=== PATIENT | female | born 1965 | race Caucasian/White ===

== ENCOUNTER 2022-04-19 16:07 | Inpatient (IN) ==
--- NOTE | 2022-04-19 16:23 | ED Triage Note ---
Date of Service April 19, 2022 History of Present Illness This patient was briefly evaluated while in triage. An abbreviated physical exam was performed. This patient is a 56-year-old Female with past medical history of gallbladder sludge who presents to the ED for evaluation of epigastric and right upper quadrant pain radiating straight through to the back. The patient reports that the pain is worsened after eating. She denies any nausea, chest pain or shortness of breath. The pain is worsened when she takes a deep breath. The patient reports that she has had prior endoscopy studies, and her senior principal software engineer indicated that if she had another flare that she would likely require a cholecystostomy procedure. Her discomfort has been worsening over the past few days, but her current pain just started today after eating lunch Physical Exam CONSTITUTIONAL: Healthy and well nourished. Patient does not appear toxic HEENT: No scleral icterus or conjunctival injection RESPIRATORY: Clear to auscultation bilaterally with no wheezing, crackles, rhonchi or stridor. Deep breathing does cause mild discomfort CARDIOVASCULAR: Regular rate and rhythm with no murmurs, rubs or gallops. GASTROINTESTINAL: Bowel sounds present in all quadrants. Patient has epigastric and right upper quadrant tenderness to palpation with positive Leung sign. Negative CVA tenderness. No rigidity, guarding or rebound. MUSCULOSKELETAL: Full range of motion of all joints without discomfort. INTEGUMENTARY: No rash or other significant dermatologic conditions noted. HEMATOLOGIC: No ecchymosis or petechiae. PSYCHIATRIC: Positive affect. NEUROLOGIC: No focal neurologic deficits noted. Initial orders for labs and / or imaging were placed and patient was placed in the waiting area until a bed is available. Please see further documentation for the full ED course.
[2022-04-19 17:11] LABS: Basophils # (auto) 0.03 K/uL (0-0.2); Basophils % (auto) 0.6 %; Eosinophils # (auto) 0.12 K/uL (0-0.50); Eosinophils % (auto) 2.4 %; Hematocrit (blood only) 36.7 % (37.0-47.0); Hemoglobin 12.2 g/dl (12.0-16.0); Immature Granulocytes # (auto) 0.02 K/uL (0.01-0.20); Immature Granulocytes % (auto) 0.4 %; Lymphocytes % (auto) 25.5 %; Mean Corpuscular Hgb Conc 33.2 g/dL (32.0-36.0); Mean Corpuscular Volume 87.4 fL (80.0-100.0); Mean Platelet Volume 10.9 fL (9.4-12.4); Monocytes # (auto) 0.34 K/uL (0.11-0.59); Monocytes % (auto) 6.7 %; Neutrophils # (auto) 3.29 K/uL (1.40-6.50); Neutrophils % (auto) 64.4 %; Platelet Count 272 K/uL (130-400); RDW Standard Deviation 48.4 fL (36.4-46.3)
[2022-04-19 17:15] LABS: Pregnancy Test, Serum Negative (Negative)
[2022-04-19 17:17] LABS: Albumin Globulin Ratio 1.6 (0.9-2); Albumin Level 4.8 gm/dl (3.4-5.0); BUN Creatinine Ratio 15.8 (10-20); Bilirubin,Total 0.3 mg/dl (0.2-1.0); Calcium 10.9 mg/dl (8.5-10.1); Creatinine Clr Calc Pharmacy 59.6 ml/min; Est GFR (African American) 73.1 ml/min; Est GFR (Non-African American) 63.1 ml/min; Potassium 3.8 mmol/L (3.5-5.1); Total Protein 7.8 gm/dl (6.0-8.3)
--- NOTE | 2022-04-19 17:34 | Ultrasound Report ---
ULTRASOUND RIGHT UPPER QUADRANT ABDOMEN CLINICAL HISTORY: Epigastric and right upper quadrant abdominal pain. COMPARISON STUDY: No priors. TECHNIQUE: Real-time, grayscale, and color flow sonography of the right upper quadrant of the abdomen was performed. Images are reviewed in the transverse and longitudinal planes. FINDINGS: Liver: The liver is normal in size and echotexture. There is no intrahepatic biliary ductal dilatatio n. The main portal vein is patent. Gallbladder: The gallbladder is contracted and contains minimal sludge. No shadowing gallstones are i dentified. There is no gallbladder wall thickening or pericholecystic fluid. A sonographic Leung's s ign is reportedly absent. The common bile duct measures up to 0.2 cm in diameter. Pancreas: Visualized portions of the pancreatic head and body are normal in appearance. The splenic v ein is patent. Right kidney: Survey images of the right kidney demonstrate normal size and echotexture. There is no hydronephrosis. Ascites: None. IMPRESSION: No acute sonographic abnormality is seen in the right upper quadrant. No gallstones are i dentified. ACT 112: Negative or not required by law. Electronically signed by: James Diallo M.D. 04/19/2022 5:33 PM
--- NOTE | 2022-04-19 18:14 | Emergency Department Note ---
Impression & Plan Cecal volvulus, Abdominal pain ED Provider Note NAME: TIFFANIE PONCE AGE: 56 SEX: F : 1965 ARRIVES VIA: Walk-In INFORMANT: Patient, ED PROVIDER(S): Arias Mirza MD CHIEF COMPLAINT: Abdominal pain MEDICAL DECISION MAKING: Patient did present due to concern for abdominal pain. The patient did have blood work completed which showed a normal white count hemoglobin and platelet count with normal kidney function and electrolytes. LFTs unremarkable with normal lipase. Patient's urinalysis does show leuks and whites but the patient does not complain of dysuria or hematuria. COVID-negative. The patient initially did have a right upper quadrant ultrasound is unremarkable with the patient was diffusely tender to the patient did receive 4 of IV morphine and 4 of IV Zofran IV fluids and a CT of the abdomen pelvis was obtained. I did speak with radiology Dr. Gutierrez who did call me after reading the CAT scan and he was concerned about a possible cecal volvulus. Given this concern I did speak with the on-call general surgery service Dr. Akers who did review the patient's CAT scan I did evaluate the patient promptly. His recommendation was to take the patient to the operating room for surgery. Patient was agreeable with this plan of care. The patient was admitted to the surgery service by Dr. Akers. Prior /Outside records reviewed: None Differential diagnosis: Appendicitis, ovarian cyst, ovarian torsion, ectopic , TOA, PID, infections, diverticulitis, UTI, obstruction, mesenteric ischemia, aortic pathology, inflammatory bowel disease, renal colic, PUD, pancreatitis, biliary pathology, hernia, volvulus, constipation, as well as other pathologies. Diagnostics, as interpreted by me: ECG: None Cardiac monitoring: An order was placed for continuous cardiac monitoring. The monitor shows a rate of 82 with sinus rhythm. Patient was placed on pulse oximetry Medical decision rules: None Imaging studies: See below HPI: Patient presents with abdominal pain which she noted more in the epigastrium and periumbilical area but it is somewhat diffuse and began after lunchtime. The patient states that she had had symptoms before in the past and was noted to have a mild elevation in her lipase at 1 time and does get serial yearly MRIs to evaluate pancreatic cyst. The patient does drink alcohol socially but denies any tobacco or drug use. Patient's only surgical history is a completed 16 years prior. Patient has had nausea but no vomiting. The patient did not take anything for pain prior to arrival describes it as sharp and worse with palpation or movement. No recent falls or trauma. The patient did have recent bowel movement. Patient denies any dysuria or hematuria. PAST MEDICAL HISTORY: See Below PAST SURGICAL HISTORY: See Below SOCIAL HISTORY: See Below HOME MEDICATIONS: See Below ALLERGIES: See Below VITALS: See Below PHYSICAL EXAMINATION: GENERAL: NAD, wearing a mask, non-toxic. EYE EXAM: Normal conjunctiva. PERRL, no anisocoria and EOM's grossly intact w/o pain. NECK: Supple, no nuchal rigidity, no adenopathy, non-tender. No signs of meningismus. FROM of the neck with good chin to chest and neck extension. No stridor. LUNGS: Clear to auscultation. Normal chest wall mechanics. HEART: NSR, no MRG. ABDOMEN: Abdomen soft, moderate diffuse tenderness to palpation throughout the abdomen, normo-active bowel sounds, no masses, no rebound or guarding. BACK: No CVA TTP. SKIN: No rashes and no bruising. UPPER EXTREMITIES: Upper extremities are grossly normal. LOWER EXTREMITIES: Grossly normal, no edema. NEURO EXAM: A&O x3, cranial nerves II-XII grossly intact, normal speech, moves all 4 extremities. Past Med/Surg History Medical History (Updated 04/20/22 @ 13:55 by Arisa Mirza MD) Depression Surgical History History of section Social History Smoking Status: Never smoker Hx Alcohol Use: Yes Alcohol type: wine Hx Substance Use: No Preferred Language: [place] Communication Ability: Effective Clerical Investigator Required: No Beliefs That Will Affect Care: None Current Living Situation: Alone Other Information That Helps Us Care for You: No Feels Safe at Home: Yes Safety Concerns: Feels Safe At This Time Assistive Devices: None Allergies Allergies Allergy/AdvReac Type Severity Reaction Status Date / Time Penicillins Allergy Unknown HIVES Verified 04/19/22 19:22 erythromycin base AdvReac Unknown GI UPSET Verified 04/19/22 19:22 Home Meds Home Medications Medication Instructions Recorded Confirmed bupropion HCl 300 mg 24 hr tablet, 300 mg PO QAM 04/19/22 04/19/22 extended release glucosamine-chondroitin 250 mg-200 1 tab PO DAILY 04/19/22 04/19/22 mg tablet (Osteo Bi-Flex) multivitamin 1 tab PO DAILY 04/19/22 04/19/22 vortioxetine 10 mg tablet 10 mg PO DAILY 04/19/22 04/19/22 (Trintellix) zolpidem 5 mg tablet 5 mg PO HS PRN Sleep 04/19/22 04/19/22 Results & Data (ED) Vital Signs Vital Signs - 24 hr 04/19/22 16:12 04/19/22 19:02 04/19/22 21:00 Temperature 37.2 C Temperature Source Temporal Artery Scan Pulse Rate 86 Pulse Rate [Apical] 66 73 Respiratory Rate 18 16 19 Respiratory Effort / Characteristics Non-Labored Non-Labored Spontaneous Respiratory Depth Normal Blood Pressure 143/83 H Blood Pressure [Left Arm] 147/82 H 138/80 Blood Pressure Mean 103 Blood Pressure Mean [Left Arm] 103 99 Pulse Oximetry 100 100 99 Oxygen Delivery Method Room Air Room Air Room Air Sepsis Recent Fever Within 48 Hours No Sepsis New/Unexplained Change in Mental Status N/A Sepsis Action Taken by Nursing No Action Required Home Medications Current Medication List: was personally reviewed by me Laboratory Data Attestation: I reviewed the patient's lab results. 04/19/22 16:45 04/19/22 16:45 Lab Results 04/19/22 04/19/22 04/19/22 Range/Units 16:45 16:45 16:45 WBC 5.10 (4.8-10.8) K/ul RBC 4.20 (4.20-5.40) M/uL Hgb 12.2 (12.0-16.0) g/dl Hct 36.7 L (37.0-47.0) % MCV 87.4 (80.0-100.0) fL MCH 29.0 (25.0-34.0) pg MCHC 33.2 (32.0-36.0) g/dL RDW Std Deviation 48.4 H (36.4-46.3) fL RDW Coeff of Ronnie 15.0 H (11.5-14.5) % Plt Count 272 (130-400) K/uL MPV 10.9 (9.4-12.4) fL Immature Gran % (Auto) 0.4 % Neut % (Auto) 64.4 % Lymph % (Auto) 25.5 % Dickey % (Auto) 6.7 % Eos % (Auto) 2.4 % Baso % (Auto) 0.6 % Neut # (Auto) 3.29 (1.40-6.50) K/uL Lymph # (Auto) 1.30 (1.2-3.4) K/uL Dickey # (Auto) 0.34 (0.11-0.59) K/uL Eos # (Auto) 0.12 (0-0.50) K/uL Baso # (Auto) 0.03 (0-0.2) K/uL Immature Gran # (Auto) 0.02 (0.01-0.20) K/uL Sodium 140 (136-145) mmol/L Potassium 3.8 (3.5-5.1) mmol/L Chloride 103 (98-107) mmol/L Carbon Dioxide 30 (21-32) mmol/L Anion Gap 7 (3-11) BUN 16 (6-23) mg/dl Creatinine 1.01 (0.6-1.2) mg/dl Est Cr Clr Drug Dosing 59.6 ml/min Est GFR ( Amer) 73.1 ml/min Est GFR (Non-Af Amer) 63.1 ml/min BUN/Creatinine Ratio 15.8 (10-20) Glucose 86 (70-99(Fasting)) mg/dl Calcium 10.9 H (8.5-10.1) mg/dl Total Bilirubin 0.3 (0.2-1.0) mg/dl AST 22 (13-39) U/L ALT 16 (7-52) U/L Alkaline Phosphatase 62 (34-104) U/L Total Protein 7.8 (6.0-8.3) gm/dl Albumin 4.8 (3.4-5.0) gm/dl Globulin 3.0 (2.5-4.0) gm/dl Albumin/Globulin Ratio 1.6 (0.9-2) Lipase 47 (11-82) U/L HCG, Qual Negative (Negative) Urine Color Urine Appearance (Clear) Urine pH (4.5-7.5) Ur Specific [place] (1.000-1.030) Urine Protein (Negative) Urine Glucose (UA) (Negative) Urine Ketones (Negative) Urine Blood (Negative) Urine Nitrite (Negative) Urine Bilirubin (Negative) Urine Urobilinogen (Negative) Ur Leukocyte Esterase (Negative) Urine WBC (Auto) (0-5) /hpf Urine RBC (Auto) (0-4) /hpf U Hyaline Cast (Auto) (0-5) /lpf U Epithel Cells (Auto) (0-5) /lpf Urine Bacteria (Auto) (Negative) SARS-CoV-2, RNA, NAAT (NEGATIVE) 04/19/22 04/19/22 Range/Units 20:01 20:13 WBC (4.8-10.8) K/ul RBC (4.20-5.40) M/uL Hgb (12.0-16.0) g/dl Hct (37.0-47.0) % MCV (80.0-100.0) fL MCH (25.0-34.0) pg MCHC (32.0-36.0) g/dL RDW Std Deviation (36.4-46.3) fL RDW Coeff of Ronnie (11.5-14.5) % Plt Count (130-400) K/uL MPV (9.4-12.4) fL Immature Gran % (Auto) % Neut % (Auto) % Lymph % (Auto) % Dickey % (Auto) % Eos % (Auto) % Baso % (Auto) % Neut # (Auto) (1.40-6.50) K/uL Lymph # (Auto) (1.2-3.4) K/uL Dickey # (Auto) (0.11-0.59) K/uL Eos # (Auto) (0-0.50) K/uL Baso # (Auto) (0-0.2) K/uL Immature Gran # (Auto) (0.01-0.20) K/uL Sodium (136-145) mmol/L Potassium (3.5-5.1) mmol/L Chloride (98-107) mmol/L Carbon Dioxide (21-32) mmol/L Anion Gap (3-11) BUN (6-23) mg/dl Creatinine (0.6-1.2) mg/dl Est Cr Clr Drug Dosing ml/min Est GFR ( Amer) ml/min Est GFR (Non-Af Amer) ml/min BUN/Creatinine Ratio (10-20) Glucose (70-99(Fasting)) mg/dl Calcium (8.5-10.1) mg/dl Total Bilirubin (0.2-1.0) mg/dl AST (13-39) U/L ALT (7-52) U/L Alkaline Phosphatase (34-104) U/L Total Protein (6.0-8.3) gm/dl Albumin (3.4-5.0) gm/dl Globulin (2.5-4.0) gm/dl Albumin/Globulin Ratio (0.9-2) Lipase (11-82) U/L HCG, Qual (Negative) Urine Color Yellow Urine Appearance Clear (Clear) Urine pH 7.0 (4.5-7.5) Ur Specific [place] 1.021 (1.000-1.030) Urine Protein Negative (Negative) Urine Glucose (UA) Negative (Negative) Urine Ketones 1+ H (Negative) Urine Blood Negative (Negative) Urine Nitrite Negative (Negative) Urine Bilirubin Negative (Negative) Urine Urobilinogen Negative (Negative) Ur Leukocyte Esterase 1+ H (Negative) Urine WBC (Auto) 5-10 H (0-5) /hpf Urine RBC (Auto) 0-4 (0-4) /hpf U Hyaline Cast (Auto) 1-5 (0-5) /lpf U Epithel Cells (Auto) 10-20 H (0-5) /lpf Urine Bacteria (Auto) Negative (Negative) SARS-CoV-2, RNA, NAAT NEGATIVE (NEGATIVE) Administered Medications Enoxaparin Sodium (Enoxaparin Inj 40 Mg/0.4 Ml Syr) 40 mg SQ Q24H BRITNI Stop: 05/20/22 08:59 Last Admin: 04/20/22 09:25 Dose: 40 mg Documented By: RUSS Acetaminophen (Ofirmev) 1,000 mg in 100 mls @ 400 mls/hr IV Q8H BRITNI Stop: 04/23/22 00:59 Last Infusion: 04/20/22 10:41 Dose: 0 mls/hr Documented By: Admin: 04/20/22 09:29 Dose: 400 mls/hr Documented By: Infusion: 04/20/22 01:23 Dose: 0 mls/hr Documented By: Admin: 04/20/22 01:08 Dose: 400 mls/hr Documented By: NATY Lactated Ringer's (Lr) 1,000 mls @ 75 mls/hr IV .[id number] BRITNI Stop: 05/20/22 00:39 Last Admin: 04/20/22 13:22 Dose: 75 mls/hr Documented By: Infusion: 04/20/22 13:22 Dose: 75 mls/hr Documented By: Admin: 04/20/22 01:02 Dose: 75 mls/hr Documented By: NATY Morphine Sulfate (Morphine Sulfate 2 Mg/Ml Carp) 2 mg IV Q3H PRN PRN Reason: Pain (1,2,3,4,5) & Pre PT Stop: 05/04/22 00:39 Last Admin: 04/20/22 09:21 Dose: 2 mg Documented By: Admin: 04/20/22 05:20 Dose: 2 mg Documented By: NATY Ondansetron HCl (Ondansetron Inj 2 Mg/Ml 2 Ml Vial) 4 mg IV Q4H PRN PRN Reason: Nausea And Vomiting Stop: 05/20/22 00:39 Last Admin: 04/20/22 01:11 Dose: 4 mg Documented By: NATY Discontinued Medications Cefoxitin Sodium (Cefoxitin Sod 1 Gm Vial) Confirm Administered Dose 2,000 mg .ROUTE .STK-MED ONE Stop: 04/19/22 22:02 Last Admin: 04/19/22 23:10 Dose: 2,000 mg Documented By: MICHELLE Sodium Chloride (Nss 1000ml) 500 mls @ 999 mls/hr IV .Q31M ONE Stop: 04/19/22 19:07 Last Infusion: 04/19/22 19:17 Dose: 0 mls/hr Documented By: Admin: 04/19/22 18:46 Dose: 999 mls/hr Documented By: GINA Cefazolin Sodium (Ancef 2000mg) 2,000 mg in 15 mls @ 3.75 mls/min IV ONCE ONE; Protocol Stop: 04/19/22 23:14 Last Admin: 04/19/22 22:15 Dose: 3.75 mls/min Documented By: MICHELLE Ioversol (Optiray 350 100ml) 84 ml IV ONCE ONE Stop: 04/19/22 18:57 Last Admin: 04/19/22 19:00 Dose: 84 ml Documented By: TIERRA Ketorolac Tromethamine (Ketorolac 30 Mg/Ml Vial) 30 mg IV Q6H PRN PRN Reason: Pain & Pre PT Stop: 04/25/22 00:39 Last Admin: 04/20/22 03:01 Dose: 30 mg Documented By: NATY Ketorolac Tromethamine (Ketorolac 30 Mg/Ml Vial) 30 mg IV NOW STA Stop: 04/20/22 12:49 Last Admin: 04/20/22 13:13 Dose: 30 mg Documented By: RUSS Morphine Sulfate (Morphine Sulfate 4 Mg/Ml 1 Ml Carp\Vial) 4 mg IV NOW STA Stop: 04/19/22 18:38 Last Admin: 04/19/22 18:43 Dose: 4 mg Documented By: GINA Ondansetron HCl (Ondansetron Inj 2 Mg/Ml 2 Ml Vial) 4 mg IV NOW STA Stop: 04/19/22 18:38 Last Admin: 04/19/22 18:42 Dose: 4 mg Documented By: GINA Oxycodone/Acetaminophen (Oxycodone/Acetaminophen 5mg/325mg Tab) 1 tab PO Q4H PRN PRN Reason: moderate pain Stop: 05/04/22 07:56 Last Admin: 04/20/22 10:30 Dose: 1 tab Documented By: RUSS Imaging Data Radiologist's Impression: Gallbladder Ultrasound 04/19/22 16:16 ULTRASOUND RIGHT UPPER QUADRANT ABDOMEN CLINICAL HISTORY: Epigastric and right upper quadrant abdominal pain. COMPARISON STUDY: No priors. TECHNIQUE: Real-time, grayscale, and color flow sonography of the right upper quadrant of the abdomen was performed. Images are reviewed in the transverse and longitudinal planes. FINDINGS: Liver: The liver is normal in size and echotexture. There is no intrahepatic biliary ductal dilatation. The main portal vein is patent. Gallbladder: The gallbladder is contracted and contains minimal sludge. No shadowing gallstones are identified. There is no gallbladder wall thickening or pericholecystic fluid. A sonographic Leung's sign is reportedly absent. The common bile duct measures up to 0.2 cm in diameter. Pancreas: Visualized portions of the pancreatic head and body are normal in appearance. The splenic vein is patent. Right kidney: Survey images of the right kidney demonstrate normal size and echotexture. There is no hydronephrosis. Ascites: None. IMPRESSION: No acute sonographic abnormality is seen in the right upper quadrant. No gallstones are identified. ACT 112: Negative or not required by law. Electronically signed by: James Diallo M.D. 04/19/2022 5:33 PM Gallbladder Ultrasound 04/19/22 16:16 ULTRASOUND RIGHT UPPER QUADRANT ABDOMEN CLINICAL HISTORY: Epigastric and right upper quadrant abdominal pain. COMPARISON STUDY: No priors. TECHNIQUE: Real-time, grayscale, and color flow sonography of the right upper quadrant of the abdomen was performed. Images are reviewed in the transverse and longitudinal planes. FINDINGS: Liver: The liver is normal in size and echotexture. There is no intrahepatic biliary ductal dilatation. The main portal vein is patent. Gallbladder: The gallbladder is contracted and contains minimal sludge. No shadowing gallstones are identified. There is no gallbladder wall thickening or pericholecystic fluid. A sonographic Leung's sign is reportedly absent. The common bile duct measures up to 0.2 cm in diameter. Pancreas: Visualized portions of the pancreatic head and body are normal in appearance. The splenic vein is patent. Right kidney: Survey images of the right kidney demonstrate normal size and echotexture. There is no hydronephrosis. Ascites: None. IMPRESSION: No acute sonographic abnormality is seen in the right upper quadrant. No gallstones are identified. ACT 112: Negative or not required by law. Electronically signed by: James Diallo M.D. 04/19/2022 5:33 PM Abdomen/Pelvis CT 04/19/22 18:37 CT OF THE ABDOMEN AND PELVIS WITH CONTRAST CLINICAL HISTORY: Diffuse abdominal pain. COMPARISON STUDY: Right upper quadrant ultrasound performed earlier today. TECHNIQUE: Following IV administration of 84 mL of Optiray, axial images of the abdomen and pelvis were obtained from the lung bases to the proximal femurs. Images were reviewed in the axial, sagittal, and coronal planes. IV contrast was administered without complication. Automated exposure control was utilized for the study. A dose lowering technique was utilized adhering to the principles of ALARA. CT DOSE: 249.42 mGy.cm FINDINGS: Lung bases are unremarkable. No pneumatosis, free air or portal venous gas is present. The liver, spleen, adrenal glands, kidneys and pancreas are unremarkable. There is no biliary or pancreatic ductal dilatation. There is no peripancreatic or pericholecystic infiltration. There is no hydronephrosis. The cecum is abnormally positioned within the central abdomen. In addition, the cecum is moderately distended, measuring 10.7 cm in caliber. The appendix is normal. There is mild swirling of the mesentery. Distal small bowel is mildly fluid-filled. Major vasculature is patent. There is no lymphadenopathy. Bladder is distended. IMPRESSION: Moderately distended, abnormally positioned cecum, as described above. Although not definitive, the findings are suspicious for a developing cecal volvulus. Findings discussed with Dr. Mirza at time of dictation. ACT 112: Negative or not required by law. Electronically signed by: Grant Gutierrez M.D. 04/19/2022 7:23 PM Discharge Plan Visit Data Chief Complaint: Abdominal Pain Stated Complaint: SEVERE ABDOMINAL PAIN,BACK PAIN ED Provider: Arias Mirza Discharge Problem: Cecal volvulus, Abdominal pain Patient Disposition: Admitted As Inpatient Discharge Instructions Interventions: ED Discharge Assessment Last Done: 04/19/22 21:15
[2022-04-19] MEDS ORDERED: ONDANSETRON INJ 2 MG/ML 2 ML VIAL IV STA (18:37)
[2022-04-19] MEDS ORDERED: SODIUM CHLORIDE 0.9% 1000ML 500 ML IV ONE (18:37)
[2022-04-19] MEDS ORDERED: MoRPHine SULFATE 4 MG/ML 1 ML CARP\\VIAL IV STA (18:37)
[2022-04-19] MEDS ORDERED: OPTIRAY 350 100ml IV ONE (18:56)
--- NOTE | 2022-04-19 19:25 | CT Scan Report ---
CT OF THE ABDOMEN AND PELVIS WITH CONTRAST CLINICAL HISTORY: Diffuse abdominal pain. COMPARISON STUDY: Right upper quadrant ultrasound performed earlier today. TECHNIQUE: Following IV administration of 84 mL of Optiray, axial images of the abdomen and pelvis we re obtained from the lung bases to the proximal femurs. Images were reviewed in the axial, sagittal, and coronal planes. IV contrast was administered without complication. Automated exposure control wa s utilized for the study. A dose lowering technique was utilized adhering to the principles of ALARA . CT DOSE: 249.42 mGy.cm FINDINGS: Lung bases are unremarkable. No pneumatosis, free air or portal venous gas is present. The liver, spleen, adrenal glands, kidneys and pancreas are unremarkable. There is no biliary or pancreat ic ductal dilatation. There is no peripancreatic or pericholecystic infiltration. There is no hydrone phrosis. The cecum is abnormally positioned within the central abdomen. In addition, the cecum is mod erately distended, measuring 10.7 cm in caliber. The appendix is normal. There is mild swirling of th e mesentery. Distal small bowel is mildly fluid-filled. Major vasculature is patent. There is no lymp hadenopathy. Bladder is distended. IMPRESSION: Moderately distended, abnormally positioned cecum, as described above. Although not defi nitive, the findings are suspicious for a developing cecal volvulus. Findings discussed with Dr. Abelardo garcia at time of dictation. ACT 112: Negative or not required by law. Electronically signed by: Grant Gutierrez M.D. 04/19/2022 7:23 PM
[2022-04-19 20:33] LABS: Appearance Urine Clear (Clear); Bacteria Urine Automated Negative (Negative); Bilirubin Urine Negative (Negative); Blood Urine Negative (Negative); Color Urine Yellow; Glucose Urine UA Negative (Negative); Ketones Urine 1+ (Negative); Leukocyte Esterase Urine 1+ (Negative); Nitrite Urine Negative (Negative); Protein Urine Negative (Negative); RBC Urine Automated 0-4 /hpf (0-4); Specific Gravity Urine 1.021 (1.000-1.030); Urobilinogen Urine Negative (Negative)
--- NOTE | 2022-04-19 20:55 | History & Physical Report ---
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 She continues to have severe pain even after pain medication. I reviewed the CT scan personally with the radiologist. I reviewed the MRI from the [facility] system. I discussed with her the need for exploratory laparotomy with detorsion of the volvulus and removal of the redundant colon/right hemicolectomy. We discussed the risks and benefits of the surgery as well as the postoperative course and recovery. All her questions were answered, and she is agreeable with the plan. Consent has been obtained. We will take her to the operating room at the earliest convenience. History of Present Illness Primary Care Provider: Benito Gold MD 56-year-old woman presents with a 1 day history of severe acute mid abdominal pain. She states this occurred just prior to eating lunch. She did have chills and nausea at the time. She gives a history of vague lower abdominal pain, intermittently over the course of many years. Colonoscopy was normal. 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 She had an MRI in July 2021. CT scan in the emergency department today demonstrates a cecal volvulus, with a cecal diameter of almost 11 cm. She has had multiple doses of pain medication, and still has fairly significant pain in her abdomen when she moves. Allergies Allergy/AdvReac Type Severity Reaction Status Date / Time Penicillins Allergy Unknown HIVES Verified 04/19/22 19:22 erythromycin base AdvReac Unknown GI UPSET Verified 04/19/22 19:22 Home Medications Medication Instructions Recorded Confirmed Type bupropion HCl 300 mg 24 hr tablet, 300 mg PO QAM 04/19/22 04/19/22 History extended release glucosamine-chondroitin 250 mg-200 1 tab PO DAILY 04/19/22 04/19/22 History mg tablet (Osteo Bi-Flex) multivitamin 1 tab PO DAILY 04/19/22 04/19/22 History vortioxetine 10 mg tablet 10 mg PO DAILY 04/19/22 04/19/22 History (Trintellix) zolpidem 5 mg tablet 5 mg PO HS PRN Sleep 04/19/22 04/19/22 History Past Med/Surg History Medical History (Updated 04/19/22 @ 20:54 by David Akers MD) Depression Surgical History History of section Social History Smoking Status: Never smoker Preferred Language: Wolof Feels Safe at Home: Yes Review of Systems Review of Systems: All systems reviewed & are unremarkable except as noted in HPI & below Physical Exam Constitutional: WD/WN, vitals as above Eyes: PERRL, conjunctivae normal, anicteric sclerae Neck: trachea midline, no thyromegaly Respiratory: normal respiratory effort; no respiratory distress and no labored breathing Cardiovascular: Rate/Rhythm: regular rate and regular rhythm Gastrointestinal (Abdomen): Inspection/Auscultation: abdomen normal to inspection and + abdomen distended Percussion/Palpation: + abdomen tender (Exquisite tenderness in right lower quadrant/periumbilical region), + guarding (Voluntary guarding in right lower quadrant) and abdomen soft; abdomen not rigid Musculoskeletal: Extremities: no cyanosis and no clubbing Skin: no rashes, warm and dry Psychiatric: A+Ox3, euthymic affect Results & Data Results & Data ([facility]) Vital Signs (Past 12 Hours) Vital Signs Temp Pulse Pulse Resp BP BP Pulse Ox 04/19/22 19:02 66 16 147/82 H 100 04/19/22 16:12 37.2 C 86 18 143/83 H 100 O2 Del Method 04/19/22 19:02 Room Air 04/19/22 16:12 Room Air Laboratory Results 04/19/22 04/19/22 04/19/22 Range/Units 20:13 20:01 16:45 WBC (4.8-10.8) K/ul RBC (4.20-5.40) M/uL Hgb (12.0-16.0) g/dl Hct (37.0-47.0) % MCV (80.0-100.0) fL MCH (25.0-34.0) pg MCHC (32.0-36.0) g/dL RDW Std Deviation (36.4-46.3) fL RDW Coeff of Ronnie (11.5-14.5) % Plt Count (130-400) K/uL MPV (9.4-12.4) fL Immature Gran % (Auto) % Neut % (Auto) % Lymph % (Auto) % [place] % (Auto) % Eos % (Auto) % Baso % (Auto) % Neut # (Auto) (1.40-6.50) K/uL Lymph # (Auto) (1.2-3.4) K/uL [place] # (Auto) (0.11-0.59) K/uL Eos # (Auto) (0-0.50) K/uL Baso # (Auto) (0-0.2) K/uL Immature Gran # (Auto) (0.01-0.20) K/uL Sodium (136-145) mmol/L Potassium (3.5-5.1) mmol/L Chloride (98-107) mmol/L Carbon Dioxide (21-32) mmol/L Anion Gap (3-11) BUN (6-23) mg/dl Creatinine (0.6-1.2) mg/dl Est Cr Clr Drug Dosing ml/min Est GFR ( Amer) ml/min Est GFR (Non-Af Amer) ml/min BUN/Creatinine Ratio (10-20) Glucose (70-99(Fasting)) mg/dl Calcium (8.5-10.1) mg/dl Total Bilirubin (0.2-1.0) mg/dl AST (13-39) U/L ALT (7-52) U/L Alkaline Phosphatase (34-104) U/L Total Protein (6.0-8.3) gm/dl Albumin (3.4-5.0) gm/dl Globulin (2.5-4.0) gm/dl Albumin/Globulin Ratio (0.9-2) Lipase (11-82) U/L HCG, Qual Negative (Negative) Urine Color Yellow Urine Appearance Clear (Clear) Urine pH 7.0 (4.5-7.5) Ur Specific [place] 1.021 (1.000-1.030) Urine Protein Negative (Negative) Urine Glucose (UA) Negative (Negative) Urine Ketones 1+ H (Negative) Urine Blood Negative (Negative) Urine Nitrite Negative (Negative) Urine Bilirubin Negative (Negative) Urine Urobilinogen Negative (Negative) Ur Leukocyte Esterase 1+ H (Negative) Urine WBC (Auto) 5-10 H (0-5) /hpf Urine RBC (Auto) 0-4 (0-4) /hpf U Hyaline Cast (Auto) 1-5 (0-5) /lpf U Epithel Cells (Auto) 10-20 H (0-5) /lpf Urine Bacteria (Auto) Negative (Negative) SARS-CoV-2, RNA, NAAT NEGATIVE (NEGATIVE) 04/19/22 04/19/22 Range/Units 16:45 16:45 WBC 5.10 (4.8-10.8) K/ul RBC 4.20 (4.20-5.40) M/uL Hgb 12.2 (12.0-16.0) g/dl Hct 36.7 L (37.0-47.0) % MCV 87.4 (80.0-100.0) fL MCH 29.0 (25.0-34.0) pg MCHC 33.2 (32.0-36.0) g/dL RDW Std Deviation 48.4 H (36.4-46.3) fL RDW Coeff of Ronnie 15.0 H (11.5-14.5) % Plt Count 272 (130-400) K/uL MPV 10.9 (9.4-12.4) fL Immature Gran % (Auto) 0.4 % Neut % (Auto) 64.4 % Lymph % (Auto) 25.5 % [place] % (Auto) 6.7 % Eos % (Auto) 2.4 % Baso % (Auto) 0.6 % Neut # (Auto) 3.29 (1.40-6.50) K/uL Lymph # (Auto) 1.30 (1.2-3.4) K/uL [place] # (Auto) 0.34 (0.11-0.59) K/uL Eos # (Auto) 0.12 (0-0.50) K/uL Baso # (Auto) 0.03 (0-0.2) K/uL Immature Gran # (Auto) 0.02 (0.01-0.20) K/uL Sodium 140 (136-145) mmol/L Potassium 3.8 (3.5-5.1) mmol/L Chloride 103 (98-107) mmol/L Carbon Dioxide 30 (21-32) mmol/L Anion Gap 7 (3-11) BUN 16 (6-23) mg/dl Creatinine 1.01 (0.6-1.2) mg/dl Est Cr Clr Drug Dosing 59.6 ml/min Est GFR ( Amer) 73.1 ml/min Est GFR (Non-Af Amer) 63.1 ml/min BUN/Creatinine Ratio 15.8 (10-20) Glucose 86 (70-99(Fasting)) mg/dl Calcium 10.9 H (8.5-10.1) mg/dl Total Bilirubin 0.3 (0.2-1.0) mg/dl AST 22 (13-39) U/L ALT 16 (7-52) U/L Alkaline Phosphatase 62 (34-104) U/L Total Protein 7.8 (6.0-8.3) gm/dl Albumin 4.8 (3.4-5.0) gm/dl Globulin 3.0 (2.5-4.0) gm/dl Albumin/Globulin Ratio 1.6 (0.9-2) Lipase 47 (11-82) U/L HCG, Qual (Negative) Urine Color Urine Appearance (Clear) Urine pH (4.5-7.5) Ur Specific [place] (1.000-1.030) Urine Protein (Negative) Urine Glucose (UA) (Negative) Urine Ketones (Negative) Urine Blood (Negative) Urine Nitrite (Negative) Urine Bilirubin (Negative) Urine Urobilinogen (Negative) Ur Leukocyte Esterase (Negative) Urine WBC (Auto) (0-5) /hpf Urine RBC (Auto) (0-4) /hpf U Hyaline Cast (Auto) (0-5) /lpf U Epithel Cells (Auto) (0-5) /lpf Urine Bacteria (Auto) (Negative) SARS-CoV-2, RNA, NAAT (NEGATIVE)
[2022-04-19] MEDS ORDERED: SUCCINYLCHOLINE 100MG/5ML SYR IV ONE (21:23)
[2022-04-19] MEDS ORDERED: PROPOFOL IV EMULSION 10 MG/ML 20 ML VIAL IV ONE (21:23)
[2022-04-19] MEDS ORDERED: DEXAMETHASONE SOD INJ 4 MG/ML VIAL ONE (21:24)
[2022-04-19] MEDS ORDERED: ROCURONIUM BROMIDE 10 MG/ML 5 ML VIAL IV ONE (21:24)
[2022-04-19] MEDS ORDERED: ONDANSETRON INJ 2 MG/ML 2 ML VIAL ONE (21:24)
[2022-04-19] MEDS ORDERED: MIDAZOLAM HCL 1 MG/ML 2ML VIAL ONE (21:25)
[2022-04-19] MEDS ORDERED: fentaNYL citrate 100 MCG/2 ML VIAL ONE ×2 (21:26→23:04)
[2022-04-19] MEDS ORDERED: LIDOCAINE 2% MPF LOCAL 5 ML VIAL INFIL ONE (21:26)
--- NOTE | 2022-04-19 21:43 | Anesthesiology Consultation ---
Date of Service April 19, 2022 Assessment & Plan Chart Review Chart Review: Acceptable Risk for Surgery Consults Requested none History Surgery Operation Date: 04/19/22 21:00 Proposed Procedures p Exploratory Laparotomy - David kAers MD Height/Weight Height: 5 ft 7 in Weight: 59.3 kg Allergies Allergy/AdvReac Type Severity Reaction Status Date / Time Penicillins Allergy Unknown HIVES Verified 04/19/22 19:22 erythromycin base AdvReac Unknown GI UPSET Verified 04/19/22 19:22 Medications Home Medications Medication Instructions Recorded Confirmed Last Taken bupropion HCl 300 mg 24 hr tablet, 300 mg PO QAM 04/19/22 04/19/22 Unknown extended release glucosamine-chondroitin 250 mg-200 1 tab PO DAILY 04/19/22 04/19/22 Unknown mg tablet (Osteo Bi-Flex) multivitamin 1 tab PO DAILY 04/19/22 04/19/22 Unknown vortioxetine 10 mg tablet 10 mg PO DAILY 04/19/22 04/19/22 Unknown (Trintellix) zolpidem 5 mg tablet 5 mg PO HS PRN Sleep 04/19/22 04/19/22 Unknown NPO Date Last Intake of Fluids: 04/19/22 Time Last Intake of Fluids: 12:30 Date Last Intake of Solids: 04/19/22 Time Last Intake of Solids: 12:30 Past Medical History Medical History (Updated 04/19/22 @ 20:54 by David Akers MD) Depression Past Surgical History Surgical History History of section Social History Smoking Status: Never smoker Physical Exam Vital Signs Last Vital Signs Temp 37.2 C 04/19/22 16:12 Pulse 73 04/19/22 21:00 Resp 19 04/19/22 21:00 BP 138/80 04/19/22 21:00 Pulse Ox 99 04/19/22 21:00 O2 Del Method Room Air 04/19/22 21:00 Testing Laboratory Results 04/19/22 16:45 04/19/22 16:45 Urine Color Yellow 04/19/22 20:13 Urine Appearance Clear (Clear) 04/19/22 20:13 Urine pH 7.0 (4.5-7.5) 04/19/22 20:13 Ur Specific [place] 1.021 (1.000-1.030) 04/19/22 20:13 Urine Protein Negative (Negative) 04/19/22 20:13 Urine Glucose (UA) Negative (Negative) 04/19/22 20:13 Urine Ketones 1+ (Negative) H 04/19/22 20:13 Urine Nitrite Negative (Negative) 04/19/22 20:13 Ur Leukocyte Esterase 1+ (Negative) H 04/19/22 20:13 Urine WBC (Auto) 5-10 /hpf (0-5) H 04/19/22 20:13 Urine RBC (Auto) 0-4 /hpf (0-4) 04/19/22 20:13 U Hyaline Cast (Auto) 1-5 /lpf (0-5) 04/19/22 20:13 U Epithel Cells (Auto) 10-20 /lpf (0-5) H 04/19/22 20:13 Urine Bacteria (Auto) Negative (Negative) 04/19/22 20:13
[2022-04-19] MEDS ORDERED: ePHEDrine sulfate 50 MG/ML AMP ONE (22:13)
[2022-04-19] MEDS ORDERED: GLYCOPYRROLATE 0.2 MG/ML VIAL ONE (22:51)
[2022-04-19] MEDS ORDERED: NEOSTIGMINE METHYLSULFATE 1 MG/ML 10ML VIAL ONE (22:51)
[2022-04-19] MEDS ORDERED: ceFAZolin 2000MG 2,000 MG/15 ML SYR IV ONE (23:11)
--- NOTE | 2022-04-19 23:12 | Post Operative Brief Note ---
Immediate Post Op Note v1 Date of Surgery April 19, 2022 Pre & Post Diagnosis Operation Date: 04/19/22 21:00 Pre-Op Diagnosis: Cecal Volvulus Post-Op Diagnosis: Cecal Volvulus I identified the patient and participated in the time-out.: Yes Procedure Operation Date: 04/19/22 21:00 Actual Procedures p Exploratory Laparotomy, Right Hemicolectomy(Right) - David Akers MD Surgeon David Akers MD [employer] None Estimated Blood Loss 10 Findings Consistent with Post-Op Diagnosis Cecal volvulus, excessive adhesions of the cecum to the right paracolic gutter causing a looping of the cecum and ascending colon
--- NOTE | 2022-04-19 23:18 | Operative Report ---
Post Operative Report Pre & Post Diagnosis Operation Date: 04/19/22 21:00 Pre-Op Diagnosis: Cecal Volvulus Post-Op Diagnosis: Cecal Volvulus I identified the patient and participated in the time-out.: Yes Procedure Operation Date: 04/19/22 21:00 Actual Procedures p Exploratory Laparotomy, Right Hemicolectomy(Right) - David Akers MD Surgeon David Akers MD Invisible Braces Orthodontist None Estimated Blood Loss 10 Findings Consistent with Post-Op Diagnosis Cecal volvulus; excessive adhesions of the redundant cecum to the right paracolic gutter resulting in looping of the cecum and right ascending colon Specimens Right colon, terminal ileum, appendix Drains None Anesthesia Type General Complications No immediate complications Description of Procedure Patient taken the operating room, placed supine on the operating table. A timeout was performed, perioperative antibiotics were administered, SCD boots were placed. After adequate anesthesia and analgesia was obtained, a [place] catheter was placed, and the patient was prepped and draped in the normal sterile fashion. A midline incision was made with a 10 blade scalpel and was carried down into the subcutaneous tissue. The level of the fascia was obtained. The fascia was opened at the umbilicus and the wound was opened to its fullest extent. The bowel was eviscerated. She had a redundant colon especially on the right side. The cecum was significantly dilated and looped over the ascending colon. The small bowel was herniated through an opening here. The bowel was straightened out, and the right colon was traced down from the hepatic flexure. There was significant adhesions from the right paracolic gutter to the right colon and cecum that seem to be causing this looping confirmation of the colon. These adhesions were taken down with blunt dissection and judicious use of electrocautery. The right colon was then mobilized along the white line of [place]. Sites were selected on the terminal ileum and on the right colon/hepatic flexure past the area of redundant cecum. The colon was transected in these locations with a JULIANA stapler. The mesentery was taken down with the LigaSure device. A [id number] functional end-to-end anastomosis was then created between the terminal ileum and the ascending colon/hepatic flexure with a JULIANA stapler. The common channel was then closed with the TA stapler. The mesen teric defect was closed with a running 3-0 Vicryl. A stitch was placed at the base of the anastomosis of 3-0 silk. The abdomen was copiously irrigated and suctioned free. The anastomosis was viable. No other pathology was noted in the abdomen. The colon and small bowel were replaced in the anatomic position. The fascia was closed with a running 0 PDS looped suture. The skin was closed with surgical clips. Dressings were applied. She tolerated the procedure without complication, was transferred in stable condition to the PACU. All instrument, needle, and sponge counts were correct at the end of the case. I attest to the content of the Intraoperative Record and any orders documented therein. Any exceptions are noted below.
[2022-04-19] MEDS ORDERED: HYDROmorphone INJ 2 MG/ML SYR/VIAL IV PRN (23:31)
[2022-04-19] MEDS ORDERED: ePHEDrine sulfate 50 MG/ML AMP IV PRN (23:31)
[2022-04-19] MEDS ORDERED: ONDANSETRON INJ 2 MG/ML 2 ML VIAL IV PRN (23:31)
[2022-04-19] MEDS ORDERED: PROMETHAZINE HCL 12.5 MG in SODIUM CHLORIDE 0.9% 50 ML IV PRN (23:31)
[2022-04-19] MEDS ORDERED: fentaNYL citrate 100 MCG/2 ML VIAL IV PRN (23:31)
[2022-04-19] MEDS ORDERED: ATROPINE SULFATE 0.1 MG/ML 10ML SYR IV PRN (23:31)
[2022-04-20] MEDS ORDERED: KETOROLAC 30 MG/ML VIAL IV PRN (00:40)
[2022-04-20] MEDS ORDERED: diphenhydrAMINE 50 MG/ML VIAL IV PRN (00:40)
--- NOTE | 2022-04-20 00:41 | Anesthesiology Progress Note ---
Date of Service April 20, 2022 Anesthesia Post Procedure Vital Signs Vital Signs: Temp Pulse Pulse Resp BP BP Pulse Ox 04/19/22 23:57 35.9 C L 55 L 16 108/70 97 04/20/22 00:07 36 C L 61 20 114/61 97 04/19/22 23:50 36 C L 55 L 20 111/58 L 99 04/19/22 23:37 36 C L 52 L 15 116/61 100 04/19/22 21:00 73 19 138/80 99 04/19/22 19:02 66 16 147/82 H 100 04/19/22 16:12 37.2 C 86 18 143/83 H 100 O2 Del Method O2 Flow Rate 04/19/22 23:57 Room Air 04/20/22 00:07 Room Air 04/19/22 23:50 Room Air 04/19/22 23:37 Oxymask 4 04/19/22 21:00 Room Air 04/19/22 19:02 Room Air 04/19/22 16:12 Room Air Pain Intensity Right Abdomen: Pain Intensity: 6 Transfer of Care Handoff Completed per policy Notes Mental Status: alert / awake / arousable and participated in evaluation Patient Amnestic to Procedure: Yes Nausea / Vomiting: adequately controlled Pain: adequately controlled Airway Patency, RR, SpO2: stable & adequate BP & HR: stable & adequate Hydration State: stable & adequate Anesthetic Complications: no major complications apparent
[2022-04-20] MEDS: LACTATED RINGER'S 1,000 ML IV SCH ×2 (01:02→13:22)
[2022-04-20] MEDS: ACETAMINOPHEN 1,000 MG/100 ML VIAL IV SCH ×3 (01:08→17:15)
[2022-04-20] MEDS: ONDANSETRON INJ 2 MG/ML 2 ML VIAL IV PRN ×2 (01:11→15:09)
[2022-04-20] MEDS: MoRPHine SULFATE 2 MG/ML CARP IV PRN ×3 (05:20→21:21)
[2022-04-20] MEDS ORDERED: oxyCODONE/ACETAMINOPHEN 5mg/325mg TAB PO PRN ×2 (07:57)
--- NOTE | 2022-04-20 09:10 | Surgery Progress Note ---
Date of Service April 20, 2022 Assessment & Plan (1) Cecal volvulus: Plan: POD # 1 s/p ex lap and right hemicolectomy -avss, hypotensive but asymptomatic - moderate postop pain , controlled at times - no n,v - no return of bowel function yet - 650 cc urine output via mejia Plan: continue pain management as needed, scheduled IV Tylenol , scheduled IV Toradol, PO Oxycodone prn, and IV Morphine prn for severe continue clear liquids OOB to chair today hopeful to remove mejia later today SCDs and lovenox for dvt prophylaxis Incentive spirometry am labs start stool softener bid tomorrow Dr. Akers has seen and examined pt agrees with above. Admission and Anticipated Discharge Date Admission Date: April 19, 2022 Subjective having moderate pain, somewhat controlled, morphine is the best no nausea or vomiting going to try clear liquids this am no chest pain or shortness of breath not passing any gas still has mejia has not been out of bed yet no dizziness or lightheadedness Physical Exam Constitutional: WD/WN, vitals as above cooperative and comfortable; no acute distress and not ill appearing Neck: normal visual inspection and trachea midline Respiratory: normal respiratory effort; no respiratory distress Gastrointestinal (Abdomen): Inspection/Auscultation: abdomen normal to inspection and + abdominal surgical incision (covered with clean/dry/intact dressings); abdomen not distended Percussion/Palpation: + abdomen tender (midline incision and RUQ), + guarding (Voluntary guarding on palpation) and abdomen soft; abdomen not rigid and abdomen not firm Skin: no rashes, warm and dry Psychiatric: A+Ox3, euthymic affect Results & Data ([facility]) Vital Signs (Past 12 Hours) Vital Signs Temp Pulse Pulse Resp BP Pulse Ox O2 Del Method 04/20/22 07:15 37 C 83 16 92/52 L 97 Room Air 04/20/22 02:20 36.5 C 75 16 96/60 L 98 Room Air 04/20/22 03:20 36.9 C 72 16 103/64 98 Room Air 04/20/22 01:20 36.5 C 68 16 98/60 L 98 Room Air 04/20/22 00:50 36.7 C 65 16 103/65 98 Room Air 04/20/22 00:44 36.4 C 59 L 16 116/72 99 Room Air 02/14/23 23:57 35.9 C L 55 L 16 108/70 97 Room Air 04/20/22 00:07 36 C L 61 20 114/61 97 Room Air 04/19/22 23:50 36 C L 55 L 20 111/58 L 99 Room Air 04/19/22 23:37 36 C L 52 L 15 116/61 100 Oxymask O2 Flow Rate 04/20/22 07:15 04/20/22 02:20 04/20/22 03:20 04/20/22 01:20 04/20/22 00:50 04/20/22 00:44 04/19/22 23:57 04/20/22 00:07 04/19/22 23:50 04/19/22 23:37 4 Laboratory Results 04/19/22 04/19/22 04/19/22 Range/Units 20:13 20:01 16:45 WBC (4.8-10.8) K/ul RBC (4.20-5.40) M/uL Hgb (12.0-16.0) g/dl Hct (37.0-47.0) % MCV (80.0-100.0) fL MCH (25.0-34.0) pg MCHC (32.0-36.0) g/dL RDW Std Deviation (36.4-46.3) fL RDW Coeff of Ronnie (11.5-14.5) % Plt Count (130-400) K/uL MPV (9.4-12.4) fL Immature Gran % (Auto) % Neut % (Auto) % Lymph % (Auto) % [place] % (Auto) % Eos % (Auto) % Baso % (Auto) % Neut # (Auto) (1.40-6.50) K/uL Lymph # (Auto) (1.2-3.4) K/uL [place] # (Auto) (0.11-0.59) K/uL Eos # (Auto) (0-0.50) K/uL Baso # (Auto) (0-0.2) K/uL Immature Gran # (Auto) (0.01-0.20) K/uL Sodium (136-145) mmol/L Potassium (3.5-5.1) mmol/L Chloride (98-107) mmol/L Carbon Dioxide (21-32) mmol/L Anion Gap (3-11) BUN (6-23) mg/dl Creatinine (0.6-1.2) mg/dl Est Cr Clr Drug Dosing ml/min Est GFR ( Amer) ml/min Est GFR (Non-Af Amer) ml/min BUN/Creatinine Ratio (10-20) Glucose (70-99(Fasting)) mg/dl Calcium (8.5-10.1) mg/dl Total Bilirubin (0.2-1.0) mg/dl AST (13-39) U/L ALT (7-52) U/L Alkaline Phosphatase (34-104) U/L Total Protein (6.0-8.3) gm/dl Albumin (3.4-5.0) gm/dl Globulin (2.5-4.0) gm/dl Albumin/Globulin Ratio (0.9-2) Lipase (11-82) U/L HCG, Qual Negative (Negative) Urine Color Yellow Urine Appearance Clear (Clear) Urine pH 7.0 (4.5-7.5) Ur Specific [place] 1.021 (1.000-1.030) Urine Protein Negative (Negative) Urine Glucose (UA) Negative (Negative) Urine Ketones 1+ H (Negative) Urine Blood Negative (Negative) Urine Nitrite Negative (Negative) Urine Bilirubin Negative (Negative) Urine Urobilinogen Negative (Negative) Ur Leukocyte Esterase 1+ H (Negative) Urine WBC (Auto) 5-10 H (0-5) /hpf Urine RBC (Auto) 0-4 (0-4) /hpf U Hyaline Cast (Auto) 1-5 (0-5) /lpf U Epithel Cells (Auto) 10-20 H (0-5) /lpf Urine Bacteria (Auto) Negative (Negative) SARS-CoV-2, RNA, NAAT NEGATIVE (NEGATIVE) 04/19/22 04/19/22 Range/Units 16:45 16:45 WBC 5.10 (4.8-10.8) K/ul RBC 4.20 (4.20-5.40) M/uL Hgb 12.2 (12.0-16.0) g/dl Hct 36.7 L (37.0-47.0) % MCV 87.4 (80.0-100.0) fL MCH 29.0 (25.0-34.0) pg MCHC 33.2 (32.0-36.0) g/dL RDW Std Deviation 48.4 H (36.4-46.3) fL RDW Coeff of Ronnie 15.0 H (11.5-14.5) % Plt Count 272 (130-400) K/uL MPV 10.9 (9.4-12.4) fL Immature Gran % (Auto) 0.4 % Neut % (Auto) 64.4 % Lymph % (Auto) 25.5 % [place] % (Auto) 6.7 % Eos % (Auto) 2.4 % Baso % (Auto) 0.6 % Neut # (Auto) 3.29 (1.40-6.50) K/uL Lymph # (Auto) 1.30 (1.2-3.4) K/uL [place] # (Auto) 0.34 (0.11-0.59) K/uL Eos # (Auto) 0.12 (0-0.50) K/uL Baso # (Auto) 0.03 (0-0.2) K/uL Immature Gran # (Auto) 0.02 (0.01-0.20) K/uL Sodium 140 (136-145) mmol/L Potassium 3.8 (3.5-5.1) mmol/L Chloride 103 (98-107) mmol/L Carbon Dioxide 30 (21-32) mmol/L Anion Gap 7 (3-11) BUN 16 (6-23) mg/dl Creatinine 1.01 (0.6-1.2) mg/dl Est Cr Clr Drug Dosing 59.6 ml/min Est GFR ( Amer) 73.1 ml/min Est GFR (Non-Af Amer) 63.1 ml/min BUN/Creatinine Ratio 15.8 (10-20) Glucose 86 (70-99(Fasting)) mg/dl Calcium 10.9 H (8.5-10.1) mg/dl Total Bilirubin 0.3 (0.2-1.0) mg/dl AST 22 (13-39) U/L ALT 16 (7-52) U/L Alkaline Phosphatase 62 (34-104) U/L Total Protein 7.8 (6.0-8.3) gm/dl Albumin 4.8 (3.4-5.0) gm/dl Globulin 3.0 (2.5-4.0) gm/dl Albumin/Globulin Ratio 1.6 (0.9-2) Lipase 47 (11-82) U/L HCG, Qual (Negative) Urine Color Urine Appearance (Clear) Urine pH (4.5-7.5) Ur Specific [place] (1.000-1.030) Urine Protein (Negative) Urine Glucose (UA) (Negative) Urine Ketones (Negative) Urine Blood (Negative) Urine Nitrite (Negative) Urine Bilirubin (Negative) Urine Urobilinogen (Negative) Ur Leukocyte Esterase (Negative) Urine WBC (Auto) (0-5) /hpf Urine RBC (Auto) (0-4) /hpf U Hyaline Cast (Auto) (0-5) /lpf U Epithel Cells (Auto) (0-5) /lpf Urine Bacteria (Auto) (Negative) SARS-CoV-2, RNA, NAAT (NEGATIVE)
[2022-04-20] MEDS: ENOXAPARIN INJ 40 MG/0.4 ML SYR SQ SCH (09:25)
[2022-04-20 11:13] LABS: BUN Creatinine Ratio 12.2 (10-20); Calcium 8.4 mg/dl (8.5-10.1); Creatinine Clr Calc Pharmacy 69.5 ml/min; Est GFR (Non-African American) 72.5 ml/min; Potassium 3.8 mmol/L (3.5-5.1)
[2022-04-20 11:15] LABS: Hematocrit (blood only) 28.7 % (37.0-47.0); Hemoglobin 9.9 g/dl (12.0-16.0); Mean Corpuscular Hemoglobin 29.7 pg (25.0-34.0); Mean Corpuscular Hgb Conc 34.5 g/dL (32.0-36.0); Mean Corpuscular Volume 86.2 fL (80.0-100.0); Platelet Count 207 K/uL (130-400); RDW Coefficient of Variation 15.2 % (11.5-14.5); RDW Standard Deviation 48.5 fL (36.4-46.3); Red Blood Count 3.33 M/uL (4.20-5.40); White Blood Count 11.94 K/ul (4.8-10.8)
[2022-04-20 11:39] LABS: Basophils # (auto) 0.01 K/uL (0-0.2); Basophils % (auto) 0.1 %; Immature Granulocytes # (auto) 0.05 K/uL (0.01-0.20); Immature Granulocytes % (auto) 0.4 %; Lymphocytes # (auto) 0.56 K/uL (1.2-3.4); Lymphocytes % (auto) 4.7 %; Monocytes # (auto) 0.42 K/uL (0.11-0.59); Monocytes % (auto) 3.5 %; Neutrophils % (auto) 91.3 %; RBC Morphology Unremarkable
[2022-04-20] MEDS ORDERED: KETOROLAC 30 MG/ML VIAL IV STA (12:48)
[2022-04-20] MEDS: oxyCODONE HCL IR 5 MG TAB (IMMEDIATE RELEASE) PO PRN (14:52)
[2022-04-20] MEDS: KETOROLAC 30 MG/ML VIAL IV SCH (18:21)
[2022-04-21] MEDS: ACETAMINOPHEN 1,000 MG/100 ML VIAL IV SCH ×3 (01:06→17:05)
[2022-04-21] MEDS: KETOROLAC 30 MG/ML VIAL IV SCH ×2 (01:10→06:17)
[2022-04-21] MEDS: LACTATED RINGER'S 1,000 ML IV SCH (03:25)
[2022-04-21] MEDS: MoRPHine SULFATE 2 MG/ML CARP IV PRN (07:25)
[2022-04-21] MEDS: ONDANSETRON INJ 2 MG/ML 2 ML VIAL IV PRN ×3 (07:33→19:48)
[2022-04-21 08:34] LABS: Hematocrit (blood only) 26.4 % (37.0-47.0); Hemoglobin 8.7 g/dl (12.0-16.0); Mean Corpuscular Hemoglobin 29.3 pg (25.0-34.0); Mean Corpuscular Volume 88.9 fL (80.0-100.0); Mean Platelet Volume 10.9 fL (9.4-12.4); Platelet Count 179 K/uL (130-400); RDW Coefficient of Variation 15.3 % (11.5-14.5); RDW Standard Deviation 49.3 fL (36.4-46.3); Red Blood Count 2.97 M/uL (4.20-5.40); White Blood Count 8.56 K/ul (4.8-10.8)
[2022-04-21 08:56] LABS: BUN Creatinine Ratio 13.6 (10-20); Calcium 8.5 mg/dl (8.5-10.1); Creatinine Clr Calc Pharmacy 71.1 ml/min; Est GFR (African American) 86.3 ml/min; Est GFR (Non-African American) 74.5 ml/min; Potassium 3.4 mmol/L (3.5-5.1)
[2022-04-21] MEDS: oxyCODONE HCL IR 5 MG TAB (IMMEDIATE RELEASE) PO PRN ×2 (09:00→14:56)
[2022-04-21 09:02] LABS: Basophils # (auto) 0.01 K/uL (0-0.2); Basophils % (auto) 0.1 %; Eosinophils # (auto) 0.02 K/uL (0-0.50); Eosinophils % (auto) 0.2 %; Immature Granulocytes # (auto) 0.03 K/uL (0.01-0.20); Immature Granulocytes % (auto) 0.4 %; Lymphocytes # (auto) 0.44 K/uL (1.2-3.4); Lymphocytes % (auto) 5.1 %; Monocytes # (auto) 0.31 K/uL (0.11-0.59); Monocytes % (auto) 3.6 %; Neutrophils # (auto) 7.75 K/uL (1.40-6.50); Neutrophils % (auto) 90.6 %; Polychromasia 1+
[2022-04-21] MEDS: ENOXAPARIN INJ 40 MG/0.4 ML SYR SQ SCH (09:04)
[2022-04-21] MEDS ORDERED: VORTIOXETINE HYDROBROMIDE 10 MG TABLET PO ONE (10:00)
--- NOTE | 2022-04-21 10:00 | Surgery Progress Note ---
Date of Service April 21, 2022 Assessment & Plan (1) Cecal volvulus: Plan: POD # 1.5 s/p ex lap and right hemicolectomy - avss, - moderate postop pain - +distention and episode of vomiting today - + flatus - Hgb 8.7 today, hemodynamically stable Plan: continue pain management as needed, scheduled IV Tylenol , IV Toradol prn, PO Oxycodone prn, and IV Morphine prn for severe pain continue clear liquids, sips today ambulate today SCDs for dvt prophylaxis, hold lovenox Incentive spirometry am labs Discussed with Dr. Akers who agrees with above. Admission and Anticipated Discharge Date Admission Date: April 19, 2022 Subjective had a rough morning, woke up with severe upper abdominal pain similar to before hospital and then had bilious vomiting and felt better passed gas one time urinating without difficulty feels bloated today belching a bit today has not walked hallway yet but would like to try today Physical Exam Constitutional: WD/WN, vitals as above + thin, cooperative and comfortable; no acute distress, not ill appearing and not frail appearing Neck: normal visual inspection and trachea midline Respiratory: normal respiratory effort; no respiratory distress, no labored breathing and no retractions Gastrointestinal (Abdomen): Inspection/Auscultation: + abdomen distended (mild), normal bowel sounds and + abdominal surgical incision (covered with clean/dry/intact dressing) Percussion/Palpation: + abdomen tender (generalized tenderness more in RLQ and at incision site), + guarding (voluntary guarding) and abdomen soft; abdomen not rigid Skin: no rashes, warm and dry Psychiatric: Orientation: alert and oriented x 3 Results & Data ([facility]) Vital Signs (Past 12 Hours) Vital Signs Temp Pulse Resp BP Pulse Ox O2 Del Method 04/21/22 07:17 37.3 C 88 17 107/67 94 Room Air Laboratory Results 04/21/22 04/21/22 04/20/22 Range/Units 07:58 07:58 10:40 WBC 8.56 (4.8-10.8) K/ul RBC 2.97 L (4.20-5.40) M/uL Hgb 8.7 L (12.0-16.0) g/dl Hct 26.4 L (37.0-47.0) % MCV 88.9 (80.0-100.0) fL MCH 29.3 (25.0-34.0) pg MCHC 33.0 (32.0-36.0) g/dL RDW Std Deviation 49.3 H (36.4-46.3) fL RDW Coeff of Ronnie 15.3 H (11.5-14.5) % Plt Count 179 (130-400) K/uL MPV 10.9 (9.4-12.4) fL Immature Gran % (Auto) 0.4 % Neut % (Auto) 90.6 % Lymph % (Auto) 5.1 % Luna % (Auto) 3.6 % Eos % (Auto) 0.2 % Baso % (Auto) 0.1 % Neut # (Auto) 7.75 H (1.40-6.50) K/uL Lymph # (Auto) 0.44 L (1.2-3.4) K/uL Luna # (Auto) 0.31 (0.11-0.59) K/uL Eos # (Auto) 0.02 (0-0.50) K/uL Baso # (Auto) 0.01 (0-0.2) K/uL Immature Gran # (Auto) 0.03 (0.01-0.20) K/uL RBC Morphology Polychromasia 1+ Sodium 138 135 L (136-145) mmol/L Potassium 3.4 L 3.8 (3.5-5.1) mmol/L Chloride 106 104 (98-107) mmol/L Carbon Dioxide 26 25 (21-32) mmol/L Anion Gap 6 6 (3-11) BUN 12 11 (6-23) mg/dl Creatinine 0.88 0.90 (0.6-1.2) mg/dl Est Cr Clr Drug Dosing 71.1 69.5 ml/min Est GFR ( Amer) 86.3 84.0 ml/min Est GFR (Non-Af Amer) 74.5 72.5 ml/min BUN/Creatinine Ratio 13.6 12.2 (10-20) Glucose 91 142 H (70-99(Fasting)) mg/dl Calcium 8.5 8.4 L D (8.5-10.1) mg/dl 04/20/22 Range/Units 10:40 WBC 11.94 H (4.8-10.8) K/ul RBC 3.33 L (4.20-5.40) M/uL Hgb 9.9 L (12.0-16.0) g/dl Hct 28.7 L (37.0-47.0) % MCV 86.2 (80.0-100.0) fL MCH 29.7 (25.0-34.0) pg MCHC 34.5 (32.0-36.0) g/dL RDW Std Deviation 48.5 H (36.4-46.3) fL RDW Coeff of Ronnie 15.2 H (11.5-14.5) % Plt Count 207 (130-400) K/uL MPV 11.0 (9.4-12.4) fL Immature Gran % (Auto) 0.4 % Neut % (Auto) 91.3 % Lymph % (Auto) 4.7 % Luna % (Auto) 3.5 % Eos % (Auto) 0.0 % Baso % (Auto) 0.1 % Neut # (Auto) 10.90 H (1.40-6.50) K/uL Lymph # (Auto) 0.56 L (1.2-3.4) K/uL Luna # (Auto) 0.42 (0.11-0.59) K/uL Eos # (Auto) 0.00 (0-0.50) K/uL Baso # (Auto) 0.01 (0-0.2) K/uL Immature Gran # (Auto) 0.05 (0.01-0.20) K/uL RBC Morphology Unremarkable Polychromasia Sodium (136-145) mmol/L Potassium (3.5-5.1) mmol/L Chloride (98-107) mmol/L Carbon Dioxide (21-32) mmol/L Anion Gap (3-11) BUN (6-23) mg/dl Creatinine (0.6-1.2) mg/dl Est Cr Clr Drug Dosing ml/min Est GFR ( Amer) ml/min Est GFR (Non-Af Amer) ml/min BUN/Creatinine Ratio (10-20) Glucose (70-99(Fasting)) mg/dl Calcium (8.5-10.1) mg/dl
[2022-04-21] MEDS: buPROPion XL 300 MG TABCR PO SCH (10:10)
[2022-04-21] MEDS: D5W AND 1/2NSS + 20MEQ KCL 20 MEQ/1,000 ML BAG IV SCH (11:30)
[2022-04-21] MEDS: KETOROLAC 30 MG/ML VIAL IV PRN (20:06)
[2022-04-21] MEDS: PROMETHAZINE HCL 12.5 MG in SODIUM CHLORIDE 0.9% 50 ML IV PRN (21:26)
[2022-04-22] MEDS: D5W AND 1/2NSS + 20MEQ KCL 20 MEQ/1,000 ML BAG IV SCH ×2 (00:33→15:26)
[2022-04-22] MEDS: ACETAMINOPHEN 1,000 MG/100 ML VIAL IV SCH ×3 (00:34→18:00)
[2022-04-22] MEDS: oxyCODONE HCL IR 5 MG TAB (IMMEDIATE RELEASE) PO PRN ×2 (05:29→10:51)
--- NOTE | 2022-04-22 07:49 | Surgery Progress Note ---
Date of Service April 22, 2022 Assessment & Plan (1) Cecal volvulus: Plan: POD # 2.5 s/p ex lap and right hemicolectomy - avss, -Improving postop pain -Less distention - + flatus -Labs pending Plan: continue pain management as needed, scheduled IV Tylenol, PO Oxycodone prn, and IV Morphine prn for severe pain continue clear liquids, sips today ambulate today SCDs for dvt prophylaxis, continue to hold lovenox Incentive spirometry am labs Admission and Anticipated Discharge Date Admission Date: April 19, 2022 Subjective POD #2.5 s/p exploratory laparotomy with right hemicolectomy for cecal volvulus/bascule She is feeling slightly improved this morning. She did have some emesis yesterday. Her pain has been improving. She denies fevers or chills. She has had a small amount of flatus. No bowel movements Physical Exam Physical Exam: NAD, A&O x3 Abdomen: Soft, mild distention, decreased from yesterday Mild tenderness to palpation at the incision Incision clean/dry/intact with stepan No guarding or rebound Results & Data ([facility]) Vital Signs (Past 12 Hours) Vital Signs Temp Pulse Resp BP Pulse Ox O2 Del Method 04/22/22 07:18 37.7 C H 90 17 97/62 L 92 Room Air 04/21/22 20:25 37.2 C 81 16 101/61 97 Room Air
[2022-04-22] MEDS: buPROPion XL 300 MG TABCR PO SCH (08:13)
[2022-04-22] MEDS: VORTIOXETINE HYDROBROMIDE 10 MG TABLET PO SCH (08:13)
[2022-04-22 08:26] LABS: Hematocrit (blood only) 24.7 % (37.0-47.0); Hemoglobin 8.1 g/dl (12.0-16.0); Mean Corpuscular Hemoglobin 28.6 pg (25.0-34.0); Mean Corpuscular Hgb Conc 32.8 g/dL (32.0-36.0); Mean Corpuscular Volume 87.3 fL (80.0-100.0); Mean Platelet Volume 11.1 fL (9.4-12.4); Platelet Count 176 K/uL (130-400); RDW Coefficient of Variation 15.2 % (11.5-14.5); Red Blood Count 2.83 M/uL (4.20-5.40); White Blood Count 8.43 K/ul (4.8-10.8)
[2022-04-22 08:39] LABS: BUN Creatinine Ratio 13.8 (10-20); Calcium 8.7 mg/dl (8.5-10.1); Creatinine Clr Calc Pharmacy 78.2 ml/min; Est GFR (African American) 96.9 ml/min; Est GFR (Non-African American) 83.6 ml/min; Potassium 3.5 mmol/L (3.5-5.1)
[2022-04-22 09:03] LABS: Basophils # (auto) 0.01 K/uL (0-0.2); Basophils % (auto) 0.1 %; Eosinophils # (auto) 0.01 K/uL (0-0.50); Eosinophils % (auto) 0.1 %; Immature Granulocytes # (auto) 0.05 K/uL (0.01-0.20); Immature Granulocytes % (auto) 0.6 %; Lymphocytes # (auto) 0.38 K/uL (1.2-3.4); Lymphocytes % (auto) 4.5 %; Monocytes # (auto) 0.28 K/uL (0.11-0.59); Monocytes % (auto) 3.3 %; Neutrophils % (auto) 91.4 %
[2022-04-22] MEDS ORDERED: bisacodyL 10 MG SUPP PR STA (10:19)
[2022-04-22] MEDS: DOCUSATE SODIUM 100 MG CAP PO SCH ×2 (10:47→20:08)
[2022-04-22] MEDS: PROMETHAZINE HCL 12.5 MG in SODIUM CHLORIDE 0.9% 50 ML IV PRN (15:48)
[2022-04-22] MEDS: KETOROLAC 30 MG/ML VIAL IV PRN (20:08)
--- NOTE | 2022-04-23 05:20 | Surgery Progress Note ---
Date of Service April 23, 2022 Assessment & Plan (1) Cecal volvulus: Plan: Status post right hemicolectomy on 04/19/2022 (postop day #4) As patient has poor appetite and hypoactive bowel sounds we will continue on clear liquids for the present time Continue analgesics Continue antiemetics Use of incentive spirometry has been encouraged Ambulate in hallway as able Continue IV fluids until certain oral intake will be adequate Check a.m. labs when available SCDs are in place for DVT prevention/Lovenox is currently on hold Admission and Anticipated Discharge Date Admission Date: April 19, 2022 Supervising Physician Co-Signing Physician Notes As per Walter Garcia physician assistant professor of history The patient is resting comfortably feels a lot better than yesterday her bowel movements are solidifying no real abdominal discomfort Hemoglobin this morning 7.9 patient and patient has no symptom associated with this level hemoglobin WBCs are normal no left shift At this point we will increase to full liquid diet may be able to increase to low fiber diet by tomorrow Subjective Patient is resting comfortably in bed. She notes she is tolerating clear liquids without any nausea or vomiting or exacerbation of abdominal pain but notes her appetite is poor. She does note overall her pain has improved from yesterday. She denies any nausea or vomiting and notes that she did have a bowel movement yesterday. Physical Exam Gastrointestinal (Abdomen): Abdomen is minimally distended and soft. Patient has appropriate tenderness near surgical incision which is clean, dry, and intact with stepan. Her bowel sounds are hypoactive. Results & Data ([facility]) Vital Signs (Past 12 Hours) Vital Signs Temp Pulse Resp BP Pulse Ox O2 Del Method 04/23/22 00:21 77 20 92/55 L 96 Room Air 04/22/22 23:15 37 C 82 16 93/53 L 94 Room Air 04/22/22 17:55 37.8 C H 97 H 17 106/68 96 Room Air Laboratory Results noted PG Care Time/CCT Total # of Minutes Spent Total Time Spent with Patient: Total time spent is greater than 50% in coordination of care (as documented) at patient's floor/unit and/or counseling patient: Coding Level of Care Code None Diagnoses Cecal volvulus K56.2
[2022-04-23] MEDS: MoRPHine SULFATE 2 MG/ML CARP IV PRN (05:31)
[2022-04-23 07:04] LABS: Basophils # (auto) 0.01 K/uL (0-0.2); Basophils % (auto) 0.2 %; Hematocrit (blood only) 23.6 % (37.0-47.0); Hemoglobin 7.9 g/dl (12.0-16.0); Immature Granulocytes # (auto) 0.03 K/uL (0.01-0.20); Immature Granulocytes % (auto) 0.6 %; Lymphocytes # (auto) 0.47 K/uL (1.2-3.4); Lymphocytes % (auto) 9.6 %; Mean Corpuscular Hemoglobin 29.5 pg (25.0-34.0); Mean Corpuscular Hgb Conc 33.5 g/dL (32.0-36.0); Mean Corpuscular Volume 88.1 fL (80.0-100.0); Mean Platelet Volume 10.8 fL (9.4-12.4); Monocytes # (auto) 0.24 K/uL (0.11-0.59); Monocytes % (auto) 4.9 %; Neutrophils # (auto) 4.06 K/uL (1.40-6.50); Neutrophils % (auto) 82.7 %; Platelet Count 183 K/uL (130-400); RDW Coefficient of Variation 14.9 % (11.5-14.5); RDW Standard Deviation 48.2 fL (36.4-46.3); Red Blood Count 2.68 M/uL (4.20-5.40); White Blood Count 4.91 K/ul (4.8-10.8)
[2022-04-23 07:21] LABS: BUN Creatinine Ratio 15.1 (10-20); Calcium 8.3 mg/dl (8.5-10.1); Creatinine Clr Calc Pharmacy 85.7 ml/min; Est GFR (African American) 108.2 ml/min; Est GFR (Non-African American) 93.4 ml/min; Potassium 3.6 mmol/L (3.5-5.1)
[2022-04-23 07:28] LABS: RBC Morphology Unremarkable
[2022-04-23] MEDS: buPROPion XL 300 MG TABCR PO SCH (09:01)
[2022-04-23] MEDS: DOCUSATE SODIUM 100 MG CAP PO SCH ×2 (09:01→20:47)
[2022-04-23] MEDS: VORTIOXETINE HYDROBROMIDE 10 MG TABLET PO SCH (09:01)
[2022-04-23] MEDS: ACETAMINOPHEN 500 MG TAB PO PRN ×2 (09:45→20:47)
[2022-04-23] MEDS: D5W AND 1/2NSS + 20MEQ KCL 20 MEQ/1,000 ML BAG IV SCH (13:19)
[2022-04-23] MEDS: oxyCODONE HCL IR 5 MG TAB (IMMEDIATE RELEASE) PO PRN (16:14)
[2022-04-24] MEDS: oxyCODONE HCL IR 5 MG TAB (IMMEDIATE RELEASE) PO PRN ×3 (04:41→19:41)
--- NOTE | 2022-04-24 05:41 | Surgery Progress Note ---
Date of Service April 24, 2022 Assessment & Plan (1) Cecal volvulus: Plan: Status post right hemicolectomy on 04/19/2022 (postop day #5) Continue full liquids. Consideration will be given to advancement to full liquids if she continues to tolerate this diet Continue analgesics Continue antiemetics Use of incentive spirometry has been encouraged Ambulate in hallway as able hypokalemia noted on am labs--supplementation ordered SCDs are in place for DVT prevention/Lovenox is currently on hold Admission and Anticipated Discharge Date Admission Date: April 19, 2022 Supervising Physician Co-Signing Physician Notes As per Walter Garcia physician engineering inspection assistant Patient was grateful to have liquids yesterday would like more to eat no real abdominal discomfort passing flatus has some left shoulder pain and left upper quadrant pain I suspect most likely colonic in nature with some diaphragmatic irritation At this point will advance diet patient Hemoglobin noted We will restart Lovenox Patient may shower Subjective Patient is resting comfortably in bed. She denies any nausea or vomiting. She had a small bowel movement over the past 24 hours and is passing some flatus without nausea or vomiting. She does note some tenderness at her surgical incision Physical Exam Gastrointestinal (Abdomen): Abdomen is soft and minimally distended. Bowel sounds are present. Incision is clean, dry, intact. There is appropriate pain near surgical incision. Results & Data ([facility]) Vital Signs (Past 12 Hours) Vital Signs Temp Pulse Resp BP Pulse Ox O2 Del Method 04/24/22 04:58 36.9 C 78 16 122/73 99 Room Air 04/23/22 21:33 36.9 C 75 15 119/78 98 Room Air 04/23/22 19:22 Room Air PG Care Time/CCT Total # of Minutes Spent Total Time Spent with Patient: Total time spent is greater than 50% in coordination of care (as documented) at patient's floor/unit and/or counseling patient: Coding Level of Care Code None Diagnoses Cecal volvulus K56.2
[2022-04-24 06:34] LABS: Basophils # (auto) 0.01 K/uL (0-0.2); Basophils % (auto) 0.3 %; Eosinophils # (auto) 0.17 K/uL (0-0.50); Eosinophils % (auto) 4.3 %; Hematocrit (blood only) 24.6 % (37.0-47.0); Hemoglobin 8.3 g/dl (12.0-16.0); Immature Granulocytes # (auto) 0.02 K/uL (0.01-0.20); Immature Granulocytes % (auto) 0.5 %; Mean Corpuscular Hgb Conc 33.7 g/dL (32.0-36.0); Mean Platelet Volume 10.6 fL (9.4-12.4); Monocytes # (auto) 0.25 K/uL (0.11-0.59); Monocytes % (auto) 6.3 %; Neutrophils # (auto) 2.95 K/uL (1.40-6.50); Neutrophils % (auto) 73.6 %; Platelet Count 240 K/uL (130-400); RDW Coefficient of Variation 14.6 % (11.5-14.5); RDW Standard Deviation 46.3 fL (36.4-46.3); Red Blood Count 2.86 M/uL (4.20-5.40)
[2022-04-24 06:49] LABS: BUN Creatinine Ratio 12.1 (10-20); Calcium 8.4 mg/dl (8.5-10.1); Creatinine Clr Calc Pharmacy 94.8 ml/min; Est GFR (African American) 116.1 ml/min; Est GFR (Non-African American) 100.1 ml/min; Potassium 3.2 mmol/L (3.5-5.1)
[2022-04-24] MEDS: buPROPion XL 300 MG TABCR PO SCH (10:01)
[2022-04-24] MEDS: DOCUSATE SODIUM 100 MG CAP PO SCH ×2 (10:01→21:07)
[2022-04-24] MEDS: ACETAMINOPHEN 500 MG TAB PO PRN ×2 (10:01→21:07)
[2022-04-24] MEDS: VORTIOXETINE HYDROBROMIDE 10 MG TABLET PO SCH (10:01)
[2022-04-24] MEDS: POTASSIUM CHLORIDE / WTR 10 MEQ/100 ML PLCT IV SCH ×2 (11:51→13:54)
[2022-04-25] MEDS: oxyCODONE HCL IR 5 MG TAB (IMMEDIATE RELEASE) PO PRN (06:07)
[2022-04-25] MEDS: buPROPion XL 300 MG TABCR PO SCH (07:58)
[2022-04-25] MEDS: DOCUSATE SODIUM 100 MG CAP PO SCH (07:58)
[2022-04-25] MEDS: ENOXAPARIN INJ 40 MG/0.4 ML SYR SQ SCH (07:58)
[2022-04-25] MEDS: VORTIOXETINE HYDROBROMIDE 10 MG TABLET PO SCH (07:59)
--- NOTE | 2022-04-25 08:43 | Surgery Progress Note ---
Date of Service April 25, 2022 Assessment & Plan (1) Cecal volvulus: Plan: Status post right hemicolectomy on 04/19/2022 (postop day #6) diet advanced as tolerated Continue analgesics Continue antiemetics Use of incentive spirometry has been encouraged will d/c to home today Admission and Anticipated Discharge Date Admission Date: April 19, 2022 Subjective Patient is resting comfortably in bed. She denies any nausea or vomiting. She is passing some flatus. tolerating diet Physical Exam Physical Exam: NAD, A&O x3 Abdomen: Soft, nondistended Mild tenderness to palpation at the incision Incision clean/dry/intact with stepan No guarding or rebound Results & Data ([facility]) Vital Signs (Past 12 Hours) Vital Signs Temp Pulse Resp BP Pulse Ox O2 Del Method 04/25/22 07:28 37.1 C 84 16 113/65 95 Room Air 04/24/22 20:45 37.4 C 84 15 124/72 97 Room Air
== END 2022-04-25 10:32 | disposition home or self-care (01) | DRG 330 ==
LOC: ED 16:07 → OR 21:15 → 3W 23:30

== ENCOUNTER 2024-04-18 12:54 | Inpatient (IN) ==
--- NOTE | 2024-04-18 13:10 | Emergency Department Note ---
ED Provider Note History of Present Illness Chief Complaint: Abdominal Pain Stated Complaint: Abd pain X1 day pain 9/10, N, V, hx bowel blockage Time Seen by Provider: 04/18/24 12:58 Source: patient Mode of arrival: ambulatory Limitations: no limitations Patient is a 58-year-old female that presents to the emergency department with complaints of abdominal pain, nausea, and vomiting since yesterday. Patient states that her symptoms started last evening and feels that they have worsened since. Patient notes that her pain in her abdomen has gotten significantly worse and the patient is concerned because she has a history of a cecal volvulus. Patient denies any chest pain or shortness of breath. Home Medications Medication Instructions Recorded Confirmed Type bupropion HCl 300 mg 24 hr tablet, 300 mg PO QAM 04/19/22 04/18/24 History extended release vortioxetine 10 mg tablet 10 mg PO DAILY 04/19/22 04/18/24 History (Trintellix) lisdexamfetamine 40 mg capsule 40 mg PO DAILY 04/18/24 04/18/24 History valacyclovir 1 gram tablet 1,000 mg PO DIRECTED 04/18/24 04/18/24 History Allergies Allergy/AdvReac Type Severity Reaction Status Date / Time Penicillins Allergy Unknown HIVES Verified 04/19/22 19:22 erythromycin base AdvReac Unknown GI UPSET Verified 04/19/22 19:22 Past Med/Surg History Problem List (Updated 04/18/24 @ 22:34 by MAGNOLIA Nunes) SBO (small bowel obstruction) (Acute) Medical History (Updated 04/18/24 @ 22:34 by MAGNOLIA Nunes) Abdominal pain Cecal volvulus Depression Surgical History History of section Social History Smoking Status: Unknown if ever smoked Hx Alcohol Use: Yes Alcohol type: wine Hx Substance Use: No Preferred Language: Cuban Communication Ability: Effective Dental Sales Representative Required: No Beliefs That Will Affect Care: None Current Living Situation: Alone Feels Safe at Home: Yes Assistive Devices: None Physical Exam Vital Signs Vital Signs - 24 hr 04/18/24 13:01 04/18/24 13:21 04/18/24 13:40 Temperature 36.8 C Temperature Source Oral Pulse Rate 87 79 76 Pulse Rate [Apical] Respiratory Rate 18 18 Respiratory Effort / Characteristics Non-Labored Spontaneous Respiratory Depth Normal Blood Pressure 121/68 Blood Pressure [Right Arm] Blood Pressure Mean 85 Blood Pressure Mean [Right Arm] Blood Pressure Position [Right Arm] Pulse Oximetry 100 100 Oxygen Delivery Method Room Air Room Air Sepsis Recent Fever Within 48 Hours No Sepsis New/Unexplained Change in Mental Status N/A Sepsis Action Taken by Nursing No Action Required 04/18/24 14:00 Temperature Temperature Source Pulse Rate Pulse Rate [Apical] 83 Respiratory Rate 18 Respiratory Effort / Characteristics Respiratory Depth Blood Pressure Blood Pressure [Right Arm] 116/73 Blood Pressure Mean Blood Pressure Mean [Right Arm] 87 Blood Pressure Position [Right Arm] Semi-fowlers Pulse Oximetry 93 Oxygen Delivery Method Room Air Sepsis Recent Fever Within 48 Hours Sepsis New/Unexplained Change in Mental Status Sepsis Action Taken by Nursing VITAL SIGNS - Vital signs and nursing notes were reviewed. GENERAL -58-year-old female appearing her stated age who is in no acute distress. Communicates well with provider and answers questions appropriately. HEAD - NC/AT. EYES - PERRL with EOMI bilaterally. Conjunctiva pink and moist with no injection noted. EARS - No deformities of external structures noted on gross examination bilaterally. LUNGS - Chest wall symmetric without accessory muscle use, intercostals retractions, or central cyanosis. Breath sounds clear throughout all brooks. No wheezes, rales, or rhonchi appreciated. CARDIAC - RRR with S1/S2. No murmur, rubs, or gallops appreciated. ABDOMEN - Abdominal contour without pulsations or visible masses. Negative Robert's or Zhang Montaño's Signs. Bowel sounds are normoactive in all 4 quadrants. Mildly increased tenderness to palpation appreciated across mid abdomen. No guarding. No rebound Tenderness. No palpable masses, hepatosplenomegaly, or ascites noted. NEUROLOGIC - Sensory intact to light touch throughout. PSYCH - A&Ox3 and cooperates fully with examiner. Pt is very pleasant and interacts well with examiner. Course Administered Medications Lactated Ringer's (Lr) 1,000 mls @ 80 mls/hr IV .[id number] BRITNI Stop: 04/19/24 18:58 Last Admin: 04/18/24 20:43 Dose: 80 mls/hr Documented By: ALW Morphine Sulfate (Morphine Sulfate 2 Mg/Ml Carp) 2 mg IV Q4H PRN PRN Reason: Pain Stop: 05/02/24 18:58 Last Admin: 04/18/24 19:20 Dose: 2 mg Documented By: OLAYINKA Ondansetron HCl (Ondansetron Inj 2 Mg/Ml 2 Ml Vial) 4 mg IV Q6H PRN PRN Reason: Nausea And Vomiting Stop: 05/18/24 18:58 Last Admin: 04/18/24 19:20 Dose: 4 mg Documented By: OALYINKA Discontinued Medications Fentanyl Citrate (Fentanyl Citrate Pf 100 Mcg/2 Ml Vial) 50 mcg IV NOW STA Stop: 04/18/24 13:56 Last Admin: 04/18/24 14:07 Dose: 50 mcg Documented By: LINH Sodium Chloride (Nss) 1,000 mls @ 999 mls/hr IV .Q1H1M ONE Stop: 04/18/24 16:53 Last Infusion: 04/18/24 18:13 Dose: Infused Documented By: Admin: 04/18/24 16:07 Dose: 999 mls/hr Documented By: TOM Ceftriaxone Sodium (Rocephin) 1,000 mg in 50 mls @ 100 mls/hr IV NOW STA Stop: 04/18/24 16:27 Last Infusion: 04/18/24 18:13 Dose: Infused Documented By: Admin: 04/18/24 16:08 Dose: 100 mls/hr Documented By: TOM Ioversol (Optiray 320 100ml) 94 ml IV ONCE ONE Stop: 04/18/24 13:59 Last Admin: 04/18/24 13:58 Dose: 94 ml Documented By: JOSEFINA Ketorolac Tromethamine (Ketorolac Tromethamine 15 Mg/Ml Vial) 15 mg IV NOW STA Stop: 04/18/24 13:56 Last Admin: 04/18/24 14:06 Dose: 15 mg Documented By: LINH Medical Decision Making Differential Diagnosis Differential diagnoses includes gastritis, gastroenteritis, IBS, small bowel obstruction, pancreatitis, peritonitis, constipation, cecal volvulus, abdominal abcess, among others. Medical Records Attestation: I reviewed the patient's medical records. Home Medications was personally reviewed by me Laboratory Data Attestation: I reviewed the patient's lab results. 04/18/24 13:02 04/18/24 13:02 Lab Results 04/18/24 04/18/24 Range/Units 13:02 13:15 WBC 12.96 H (4.8-10.8) K/ul RBC 4.88 (4.20-5.40) M/uL Hgb 15.0 (12.0-16.0) g/dl Hct 44.1 (37.0-47.0) % MCV 90.4 (80.0-100.0) fL MCH 30.7 (25.0-34.0) pg MCHC 34.0 (32.0-36.0) g/dL RDW Std Deviation 43.3 (36.4-46.3) fL RDW Coeff of Ronnie 13.2 (11.5-14.5) % Plt Count 287 (130-400) K/uL MPV 10.5 (9.4-12.4) fL Immature Gran % (Auto) 0.5 % Neut % (Auto) 89.9 % Lymph % (Auto) 5.7 % [place] % (Auto) 3.0 % Eos % (Auto) 0.7 % Baso % (Auto) 0.2 % Neut # (Auto) 11.65 H (1.40-6.50) K/uL Lymph # (Auto) 0.74 L (1.20-3.40) K/uL [place] # (Auto) 0.39 (0.11-0.59) K/uL Eos # (Auto) 0.09 (0.00-0.50) K/uL Baso # (Auto) 0.02 (0.00-0.20) K/uL Immature Gran # (Auto) 0.07 (0.01-0.20) K/uL Sodium 141 (136-145) mmol/L Potassium 3.9 (3.5-5.1) mmol/L Chloride 104 (98-107) mmol/L Carbon Dioxide 26 (21-32) mmol/L Anion Gap 11 (3-11) BUN 16 (6-23) mg/dl Creatinine 0.99 (0.6-1.2) mg/dl Est Cr Clr Drug Dosing 59.4 ml/min eGFR 66.92 BUN/Creatinine Ratio 16.2 (10-20) Glucose 122 H (70-99(Fasting)) mg/dl Calcium 10.3 (8.6-10.3) mg/dl Total Bilirubin 0.5 (0.2-1.0) mg/dl AST 17 (13-39) U/L ALT 12 (7-52) U/L Alkaline Phosphatase 69 (34-104) U/L Troponin I High Sens 3.1 (0-14) pg/ml Total Protein 7.7 (6.0-8.3) gm/dl Albumin 4.6 (3.4-5.0) gm/dl Globulin 3.1 (2.5-4.0) gm/dl Albumin/Globulin Ratio 1.5 (0.9-2) Lipase 30 (11-82) U/L Urine Color Dark Yellow Urine Appearance Cloudy A (Clear) Urine pH 5.5 (4.5-7.5) Ur Specific Wiley 1.036 H (1.000-1.030) Urine Protein 1+ H (Negative) Urine Glucose (UA) Negative (Negative) Urine Ketones 4+ H (Negative) Urine Blood Negative (Negative) Urine Nitrite Negative (Negative) Urine Bilirubin Negative (Negative) Urine Urobilinogen Negative (Negative) Ur Leukocyte Esterase Trace H (Negative) Urine WBC (Auto) 21-50 H (0-5) /hpf Urine RBC (Auto) 0-2 (0-2) /hpf U Hyaline Cast (Auto) 3-5 H (0-2) /lpf U Epithel Cells (Auto) 6-10 H (0-2) /hpf Urine Bacteria (Auto) None Seen (None Seen) Urine Mucus Present A (None Prsent) Imaging Data Radiologist's Impression: Abdomen/Pelvis CT 04/18/24 13:04 CT OF THE ABDOMEN AND PELVIS WITH CONTRAST CLINICAL HISTORY: Abdominal pain, nausea and vomiting. COMPARISON STUDY: CT of the abdomen and pelvis April 19, 2022. TECHNIQUE: Following IV administration of 94 mL of Optiray, axial images of the abdomen and pelvis were obtained from the lung bases to the proximal femurs. Images were reviewed in the axial, sagittal, and coronal planes. IV contrast was administered without complication. Automated exposure control was utilized for the study. A dose lowering technique was utilized adhering to the principles of ALARA. CT DOSE: 562.67 mGy.cm FINDINGS: Visualized portions of the lung bases are unremarkable. No pneumatosis, free air or portal venous gas is present. Liver, spleen, adrenal glands, kidneys and pancreas are unremarkable. There is no biliary or pancreatic ductal dilatation. There is no hydronephrosis. Multiple loops of moderately dilated fluid-filled small bowel measure up to 3.8 cm in caliber. Transition point within the right lower quadrant, within the distal ileum on image 228 of 369 is noted. This is adjacent to an apparent ileocecal anastomosis. The more distal small bowel is decompressed. There is moderate wall thickening of several decompressed ileal loops. There is a small amount of ascites within the abdomen and pelvis. No fluid collections are present. Major vasculature is patent. IMPRESSION: Findings consistent with a moderate to high-grade small bowel obstruction with transition point within the right lower quadrant, within the distal ileum. Transition site is in close proximity to an apparent ileocolonic anastomosis. Small amount of associated ascites. No pneumatosis, free air or portal venous gas. ACT 112: Negative or not required by law. Electronically signed by: Grant Gutierrez M.D. 04/18/2024 2:34 PM KUB X-Ray 04/18/24 16:15 Abdominal radiograph, one view History: NG tube placement Comparison: CT from 04/19/2022 Findings: Single AP view of the abdomen performed. The visualized portions of the upper abdomen show no definite evidence for obstruction. Contrast excretion noted within the nondilated renal collecting systems and upper ureters. No pneumatosis or portal venous gas. No abnormal calcifications project over the abdomen. No acute abnormality of the bony structures. Impression: NG tube sidehole projects over the stomach in good position. Electronically signed by Fidencio Junior 04-18-2024 5:39 PM MDM Narrative Patient is a 58-year-old female that presents to the emergency department via EMS with complaints of abdominal pain, nausea, and vomiting since yesterday. Patient states that her symptoms started last evening and feels that they have worsened since. Patient notes that her pain in her abdomen has gotten significantly worse and the patient is concerned because she has a history of a cecal volvulus. Patient denies any chest pain or shortness of breath. Patient was evaluated by myself and findings were noted in physical exam above. Patient was ordered an IV placement, lab work that included a troponin, EKG, urinalysis, and a CT of the abdomen pelvis. Patient reports that her nausea and pain is lower at this time as she received 4 mg of Zofran and 50 mcg of fentanyl in the ambulance en route to the hospital. Patient's lab work resulted with an elevated white blood cell count of 12.96. Patient had no indication of any anemia with a hemoglobin of 15 and hematocrit of 44.1. Patient also had no indication of any electrolyte imbalance. Patient's kidney function testing was normal with a BUN of 16 and a creatinine of 0.99. Patient's liver function test were all normal as well. Patient's urinalysis did result indicative of infection. Patient's EKG was completed and interpreted by myself to show the patient in normal sinus rhythm in the 80s. Upon reevaluation the patient states that she was having some pain, back she was uncomfortable. Patient was ordered a subsequent dose of fentanyl and a dose of IV Toradol. Patient CT was completed and interpreted by radiology to show a moderate to high-grade small bowel obstruction with her transition point within the right lower quadrant which is close to an ileocolonic anastomosis site. Patient had a previous cecal volvulus. Patient also has a small amount of associated ascites. I reached out to general surgery and spoke with Ana about this patient. General surgery suggested that the patient have an NG tube placed and be admitted to the hospitalist for bowel rest and that they would see the patient in the department. I reached out to [facility] hospitalist group regarding this patient. I gave Dr. Osullivan a full report on the patient's chief complaint, current status, and the results of her lab work and imaging. I also let him know that I spoke with general surgery and gave him their suggestions of an NG tube and bowel rest, stating that they would see her at bedside. The physician was agreeable to admit this patient under their service. Please refer to [facility] hospitalist group's documentation for further evaluation and management of this patient. Impression SBO (small bowel obstruction) Discharge Plan Visit Data Chief Complaint: Abdominal Pain Stated Complaint: Abd pain X1 day pain /10, N, V, hx bowel blockage ED Provider: James Galaviz ED Midlevel Provider: Lara Coto Discharge Problem: SBO (small bowel obstruction) Patient Disposition: Admitted As Inpatient Discharge Instructions Interventions: ED Discharge Assessment Last Done: 04/18/24 18:49
[2024-04-18 13:29] LABS: Basophils # (auto) 0.02 K/uL (0.00-0.20); Basophils % (auto) 0.2 %; Eosinophils # (auto) 0.09 K/uL (0.00-0.50); Eosinophils % (auto) 0.7 %; Hematocrit (blood only) 44.1 % (37.0-47.0); Immature Granulocytes # (auto) 0.07 K/uL (0.01-0.20); Immature Granulocytes % (auto) 0.5 %; Lymphocytes # (auto) 0.74 K/uL (1.20-3.40); Lymphocytes % (auto) 5.7 %; Mean Corpuscular Hemoglobin 30.7 pg (25.0-34.0); Mean Corpuscular Volume 90.4 fL (80.0-100.0); Mean Platelet Volume 10.5 fL (9.4-12.4); Monocytes # (auto) 0.39 K/uL (0.11-0.59); Neutrophils # (auto) 11.65 K/uL (1.40-6.50); Neutrophils % (auto) 89.9 %; Platelet Count 287 K/uL (130-400); RDW Coefficient of Variation 13.2 % (11.5-14.5); RDW Standard Deviation 43.3 fL (36.4-46.3); Red Blood Count 4.88 M/uL (4.20-5.40); White Blood Count 12.96 K/ul (4.8-10.8)
[2024-04-18 13:43] LABS: Albumin Globulin Ratio 1.5 (0.9-2); Albumin Level 4.6 gm/dl (3.4-5.0); BUN Creatinine Ratio 16.2 (10-20); Bilirubin,Total 0.5 mg/dl (0.2-1.0); Calcium 10.3 mg/dl (8.6-10.3); Creatinine Clr Calc Pharmacy 59.4 ml/min; Globulin 3.1 gm/dl (2.5-4.0); Potassium 3.9 mmol/L (3.5-5.1); Total Protein 7.7 gm/dl (6.0-8.3)
[2024-04-18 13:47] LABS: Appearance Urine Cloudy (Clear); Bacteria Urine Automated None Seen (None Seen); Bilirubin Urine Negative (Negative); Blood Urine Negative (Negative); Color Urine Dark Yellow; Glucose Urine UA Negative (Negative); Ketones Urine 4+ (Negative); Leukocyte Esterase Urine Trace (Negative); Mucus Urine Present (None Prsent); Nitrite Urine Negative (Negative); Protein Urine 1+ (Negative); RBC Urine Automated 0-2 /hpf (0-2); Specific Gravity Urine 1.036 (1.000-1.030); Urobilinogen Urine Negative (Negative); WBC Urine Automated 21-50 /hpf (0-5); pH Urine 5.5 (4.5-7.5)
[2024-04-18 13:48] LABS: Troponin I High Sensitivity 3.1 pg/ml (0-14)
[2024-04-18] MEDS: OPTIRAY 320 100ml IV ONE (13:58)
[2024-04-18] MEDS: KETOROLAC TROMETHAMINE 15 MG/ML VIAL IV STA (14:06)
[2024-04-18] MEDS: fentaNYL citrate PF 100 MCG/2 ML VIAL IV STA (14:07)
--- NOTE | 2024-04-18 14:36 | CT Scan Report ---
CT OF THE ABDOMEN AND PELVIS WITH CONTRAST CLINICAL HISTORY: Abdominal pain, nausea and vomiting. COMPARISON STUDY: CT of the abdomen and pelvis April 19, 2022. TECHNIQUE: Following IV administration of 94 mL of Optiray, axial images of the abdomen and pelvis we re obtained from the lung bases to the proximal femurs. Images were reviewed in the axial, sagittal, and coronal planes. IV contrast was administered without complication. Automated exposure control wa s utilized for the study. A dose lowering technique was utilized adhering to the principles of ALARA . CT DOSE: 562.67 mGy.cm FINDINGS: Visualized portions of the lung bases are unremarkable. No pneumatosis, free air or portal venous gas is present. Liver, spleen, adrenal glands, kidneys and pancreas are unremarkable. There is no biliary or pancreatic ductal dilatation. There is no hydronephrosis. Multiple loops of moderately dilated fluid-filled small bowel measure up to 3.8 cm in caliber. Transition point within the right lower quadrant, within the distal ileum on image 228 of 369 is noted. This is adjacent to an apparent ileocecal anastomosis. The more distal small bowel is decompressed. There is moderate wall thickenin g of several decompressed ileal loops. There is a small amount of ascites within the abdomen and pelv is. No fluid collections are present. Major vasculature is patent. IMPRESSION: Findings consistent with a moderate to high-grade small bowel obstruction with transitio n point within the right lower quadrant, within the distal ileum. Transition site is in close proximi ty to an apparent ileocolonic anastomosis. Small amount of associated ascites. No pneumatosis, free a ir or portal venous gas. ACT 112: Negative or not required by law. Electronically signed by: Grant Gutierrez M.D. 04/18/2024 2:34 PM
--- NOTE | 2024-04-18 15:04 | Surgery Consultation ---
Date of Consultation April 18, 2024 Assessment & Plan (1) SBO (small bowel obstruction): Patient is a 58-year-old female who presented to the emergency department with acute onset of severe abdominal pain since yesterday. Patient is also had associated nausea and vomiting. She was worked up in the emergency department and was found to have CT findings concerning for moderate to high-grade small bowel obstruction with transition point in the right lower quadrant. On exam this afternoon the patient is resting comfortably in bed, stable vital signs, and is in no acute distress. She has no signs of acute abdomen that would warrant emergent surgical intervention at this time. To note, roughly 2 years ago the patient did undergo exploratory laparotomy and right hemicolectomy for findings of cecal volvulus and she also has a history of 2 previous C-sections. Patient's case was discussed with on-call attending surgeon and for now will plan to treat patient conservatively. Recommend keeping patient n.p.o., bowel rest, NGT to suction, and IV hydration. Medical management per primary team and surgery will continue to follow. History of Present Illness Reason for Consultation: SBO History of Present Illness Patient is a 58-year-old female presented to the emergency department this afternoon with complaints of acute abdominal pain. Patient states that her pain started last evening and has been persistent since. She states she has been constipated for a few days and her pain started shortly after trying to "strain" trying to have a bowel movement. Originally her pain started more in her upper abdomen and she had associated nausea and vomiting. However the pain now has migrated down into her lower abdomen, mostly to the right side. The patient was able to have a small bowel movement prior to arrival to the ED this afternoon. To note, the patient has a history of a cecal volvulus in the past which did require exploratory laparotomy with a right hemicolectomy with Dr. Akers roughly 2 years ago. She also has had 2 C-sections in the past. Upon workup this afternoon the patient was found to have CT findings concerning for moderate to high-grade SBO with transition in the right lower quadrant. The patient was seen and evaluated at bedside this afternoon, she is resting comfortably in bed, VSS, and has no signs of acute abdomen at this time. She otherwise denies any associated CP, SOB, or new onset fevers or chills with her symptoms. Allergies Allergy/AdvReac Type Severity Reaction Status Date / Time Penicillins Allergy Unknown HIVES Verified 04/19/22 19:22 erythromycin base AdvReac Unknown GI UPSET Verified 04/19/22 19:22 Home Medications Medication Instructions Recorded Confirmed Type bupropion HCl 300 mg 24 hr tablet, 300 mg PO QAM 04/19/22 04/19/22 History extended release glucosamine-chondroitin 250 mg-200 1 tab PO DAILY 04/19/22 04/19/22 History mg tablet (Osteo Bi-Flex) multivitamin 1 tab PO DAILY 04/19/22 04/19/22 History vortioxetine 10 mg tablet 10 mg PO DAILY 04/19/22 04/19/22 History (Trintellix) zolpidem 5 mg tablet 5 mg PO HS PRN Sleep 04/19/22 04/19/22 History oxycodone-acetaminophen 5 mg-325 1 tab PO Q4H PRN pain #18 tabs 04/22/22 Rx mg tablet (Percocet) Patient History Medical History (Updated 04/18/24 @ 16:09 by Carlos Cline PA-C) Abdominal pain Cecal volvulus Depression Surgical History History of section Social History Smoking Status: Unknown if ever smoked Hx Alcohol Use: Yes Alcohol type: wine Hx Substance Use: No Preferred Language: Thai Communication Ability: Effective Engineering Production Worker Required: No Beliefs That Will Affect Care: None Current Living Situation: Alone Feels Safe at Home: Yes Assistive Devices: None Review of Systems Constitutional: as per Subjective / HPI; no fever, no chills and no sweats Respiratory: + problem reported; no cough and no whee zing Cardiovascular: no chest pain, no palpitations and no syncope Gastrointestinal: + abdominal pain, + nausea, + vomiting a nd + constipation Genitourinary: no difficulty urinating, no urinary frequency and no flank pain Physical Exam Constitutional: WD/WN, vitals as above Respiratory: normal respiratory effort, lungs clear to auscultation Cardiovascular: RRR, no murmur, no edema Gastrointestinal (Abdomen): Inspection/Auscultation: abdomen normal to inspection and + abdominal surgical scar (previous midline incision well-healed ); abdomen not distended Percussion/Palpation: + abdomen tender (TTP in the mid abdomen and RLQ ) and abdomen soft; no guarding, abdomen not rigid and abdomen not firm Skin: no rashes, warm and dry Psychiatric: A+Ox3, euthymic affect Results & Data Vital Signs (Past 12 Hours) Vital Signs Temp Pulse Pulse Resp BP BP Pulse Ox 04/18/24 14:00 83 18 116/73 93 04/18/24 13:40 76 04/18/24 13:21 79 18 100 04/18/24 13:01 36.8 C 87 18 121/68 100 O2 Del Method 04/18/24 14:00 Room Air 04/18/24 13:40 04/18/24 13:21 Room Air 04/18/24 13:01 Room Air Diagnostic Findings CT OF THE ABDOMEN AND PELVIS WITH CONTRAST CLINICAL HISTORY: Abdominal pain, nausea and vomiting. COMPARISON STUDY: CT of the abdomen and pelvis April 19, 2022. TECHNIQUE: Following IV administration of 94 mL of Optiray, axial images of the abdomen and pelvis were obtained from the lung bases to the proximal femurs. Images were reviewed in the axial, sagittal, and coronal planes. IV contrast was administered without complication. Automated exposure control was utilized for the study. A dose lowering technique was utilized adhering to the principles of ALARA. CT DOSE: 562.67 mGy.cm FINDINGS: Visualized portions of the lung bases are unremarkable. No pneumatosis, free air or portal venous gas is present. Liver, spleen, adrenal glands, kidneys and pancreas are unremarkable. There is no biliary or pancreatic ductal dilatation. There is no hydronephrosis. Multiple loops of moderately dilated fluid-filled small bowel measure up to 3.8 cm in caliber. Transition point within the right lower quadrant, within the distal ileum on image 228 of 369 is noted. This is adjacent to an apparent ileocecal anastomosis. The more distal small bowel is decompressed. There is moderate wall thickening of several decompressed ileal loops. There is a small amount of ascites within the abdomen and pelvis. No fluid collections are present. Major vasculature is patent. IMPRESSION: Findings consistent with a moderate to high-grade small bowel obstruction with transition point within the right lower quadrant, within the distal ileum. Transition site is in close proximity to an apparent ileocolonic anastomosis. Small amount of associated ascites. No pneumatosis, free air or portal venous gas. PG Care Time/CCT Total # of Minutes Spent Total Time Spent with Patient: Total time spent is greater than 50% in coordination of care (as documented) at patient's floor/unit and/or counseling patient: [place] [address] Office/OBS Consult Lvl 1 Patient Type New History Problem Focused Exam Problem Focused Medical Decision Making Straight Forward Diagnoses SBO (small bowel obstruction) K56.609
[2024-04-18] MEDS: SODIUM CHLORIDE 0.9% 1,000 ML IV ONE (16:07)
[2024-04-18] MEDS: cefTRIAXone SODIUM 1,000 MG/50 ML BAG IV STA (16:08)
--- NOTE | 2024-04-18 16:51 | History & Physical Report ---
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 Abd CT showed moderate to high grade SBO with transition point in RLQ within distal ileum Labs notable for WBC 12.96 UA noted trace esterase, WBC 21-50 NGT in situ. Once confirmed on XR, connect to LIS Gen surgery on board Keep NPO Will continue conservative management for now Continue IVF Based on report of dysuria and UA, Patient will be treated for Urinary tract infection Follow up urine culture Continue IV ceftriaxone Will hold off home po meds for now and reassess daily DVT ppx- SCD for now incase operative management is needed Code status- Full code I spent a total of 75 minutes coordinating, documenting and providing care for this patient excluding time spent in performance of separately billed services History of Present Illness Chief Complaint: Abdominal pain Primary Care Provider: Benito Gold MD 58-year-old woman with history of anxiety/depression, 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 Patient reported that she has been having constipation for the past couple of weeks, described as infrequent bowel movement with pellet-like stools. Yesterday she had to strain to move her bowels. After which she developed abdominal pain pain was initially migrated down to the right side, initially distended, associated with nausea and vomiting (initially clear and then bilous) . Denied fever, chills, cough, chest pain or short of breath Reported dysuria within the past couple of days. Denied hematuria Patient does not smoke or use recreational drugs Drinks alcohol only socially Reports childhood allergy to pencillin but has tolerated amoxicillin as an adult Reports hx of 2 section Allergies Allergy/AdvReac Type Severity Reaction Status Date / Time Penicillins Allergy Unknown HIVES Verified 04/19/22 19:22 erythromycin base AdvReac Unknown GI UPSET Verified 04/19/22 19:22 Home Medications Medication Instructions Recorded Confirmed Type bupropion HCl 300 mg 24 hr tablet, 300 mg PO QAM 04/19/22 04/18/24 History extended release vortioxetine 10 mg tablet 10 mg PO DAILY 04/19/22 04/18/24 History (Trintellix) lisdexamfetamine 40 mg capsule 40 mg PO DAILY 04/18/24 04/18/24 History valacyclovir 1 gram tablet 1,000 mg PO DIRECTED 04/18/24 04/18/24 History Past Med/Surg History Problem List (Updated 04/18/24 @ 16:09 by Carlos Cline PA-C) SBO (small bowel obstruction) Medical History (Updated 04/18/24 @ 16:09 by Carlos Cline PA-C) Abdominal pain Cecal volvulus Depression Surgical History History of section Social History Smoking Status: Unknown if ever smoked Hx Alcohol Use: Yes Alcohol type: wine Hx Substance Use: No Preferred Language: Cape Verdean Communication Ability: Effective Fly Rail Operator Required: No Beliefs That Will Affect Care: None Current Living Situation: Alone Feels Safe at Home: Yes Assistive Devices: None Review of Systems Review of Systems: All systems reviewed & are unremarkable except as noted in HPI & below Physical Exam Constitutional: + well hydrated; no acute distress Eyes: PERRL, conjunctivae normal, anicteric sclerae ENMT: external ear and nose normal, oropharynx normal NGT in place Respiratory: normal respiratory effort, lungs clear to auscultation Cardiovascular: Rate/Rhythm: regular rate and regular rhythm Gastrointestinal (Abdomen): Soft, not distended, central and RLQ tenderness, no guarding Musculoskeletal: no cyanosis or clubbing, extremities motor strength 5/5 Neurologic: PERRL, EOMI, accommodation nl, no face palsy, no dysarthria Psychiatric: A+Ox3, euthymic affect Results & Data Results & Data Vital Signs (Past 12 Hours) Vital Signs Temp Pulse Pulse Resp BP BP Pulse Ox 04/18/24 14:00 83 18 116/73 93 04/18/24 13:40 76 04/18/24 13:21 79 18 100 04/18/24 13:01 36.8 C 87 18 121/68 100 O2 Del Method 04/18/24 14:00 Room Air 04/18/24 13:40 04/18/24 13:21 Room Air 04/18/24 13:01 Room Air Laboratory Results Abnormal lab results 04/18/24 04/18/24 Range/Units 13:02 13:15 WBC 12.96 H (4.8-10.8) K/ul Neut # (Auto) 11.65 H (1.40-6.50) K/uL Lymph # (Auto) 0.74 L (1.20-3.40) K/uL Glucose 122 H (70-99(Fasting)) mg/dl Urine Appearance Cloudy A (Clear) Ur Specific G[place]mith 1.036 H (1.000-1.030) Urine Protein 1+ H (Negative) Urine Ketones 4+ H (Negative) Ur Leukocyte Esterase Trace H (Negative) Urine WBC (Auto) 21-50 H (0-5) /hpf U Hyaline Cast (Auto) 3-5 H (0-2) /lpf U Epithel Cells (Auto) 6-10 H (0-2) /hpf Urine Mucus Present A (None Prsent) Diagnostic Findings CT ABD/PELVIS FINDINGS: Visualized portions of the lung bases are unremarkable. No pneumatosis, free air or portal venous gas is present. Liver, spleen, adrenal glands, kidneys and pancreas are unremarkable. There is no biliary or pancreatic ductal dilatation. There is no hydronephrosis. Multiple loops of moderately dilated fluid-filled small bowel measure up to 3.8 cm in caliber. Transition point within the right lower quadrant, within the distal ileum on image 228 of 369 is noted. This is adjacent to an apparent ileocecal anastomosis. The more distal small bowel is decompressed. There is moderate wall thickening of several decompressed ileal loops. There is a small amount of ascites within the abdomen and pelvis. No fluid collections are present. Major vasculature is patent. IMPRESSION: Findings consistent with a moderate to high-grade small bowel obstruction with transition point within the right lower quadrant, within the distal ileum. Transition site is in close proximity to an apparent ileocolonic anastomosis. Small amount of associated ascites. No pneumatosis, free air or portal venous gas. Code Status & VTE Plan Code Status Full code
--- NOTE | 2024-04-18 17:39 | XRay Report ---
Abdominal radiograph, one view History: NG tube placement Comparison: CT from 04/19/2022 Findings: Single AP view of the abdomen performed. The visualized portions of the upper abdomen show no definite evidence for obstruction. Contrast excretion noted within the nondilated renal collecting systems and upper ureters. No pneumatosis or portal venous gas. No abnormal calcifications project over the abdomen. No acute abnormality of the bony structures. Impression: NG tube sidehole projects over the stomach in good position. Electronically signed by Fidencio Junior 04-18-2024 5:39 PM
--- OUTSIDE RECORDS SUMMARY | 2024-04-18 19:02 | External Medical Summary | Summary of Care ---
Author Name Unknown Organization [facility] [address] [facility] [address] Phone [phone] Care Team Providers Care Waste Management Recycling Technician Name Role Phone Benito Gold MD Primary Care Provider + Encounter Details Date Type Department Care Team (Late st Contact Info) Description 03/25/2024 Population Health External Data Unspecified Department Allergies Active Allergy Reactions Criticality Noted Date Comments Erythromycin 04/16/2003 GI UPSET documented as of this encounter (statuses as of 03/25/2024) Medications [place]-3 Fatty Acids (FISH OIL) 1000 MG Capsule Take 1 Capsule by mouth in the morning. Active Trintellix 10 MG Oral Tablet (Vortioxetine HBr) take 1 pill by mouth daily for mood 90 Tablet 04/26/2023 8:08 AM EST 4 Active buPROPion HCl ER (XL) 300 MG Oral Tablet Extended Release 24 Hour (Wellbutrin XL) take 1 tablet by mouth every morning for mood and attention 90 Tablet 04/22/2023 9:57 AM EST 4 Active valACYclovir HCl 1 GM Oral Tablet (Valtrex)Indica tions:Cold sore 2 tablets in AM and PM x 1 day during a cold sore flare 20 Tablet 1 4 Active buPROPion HCl ER (XL) 300 MG Oral Tablet Extended Release 24 Hour (Wellbutrin XL) Take 1 tablet by mouth once a day 90 Tablet 02/09/2024 12:39 PM EST 4 Active Lisdexamfetamin e Dimesylate 40 MG Oral Capsule (Vyvanse) Take 1 capsule by mouth every morning 90 Capsule 4 Active documented as of this encounter (statuses as of 03/25/2024) Active Problems Problem Noted Date Diagnosed Date Pancreas cyst 06/23/2021 FH: pancreatic cancer 06/23/2021 Mild mitral regurgitation 07/01/2020 Mitral prolapse 07/01/2020 Major depressive disorder, recurrent, in full re mission 05/13/2019 Hx of nonmelanoma skin cancer 04/22/2019 Overview (04/22/2019): Hx NMSC - BCC L forehead and R medial canthus 2017 Scar condition and fibrosis of skin 02/08/2018 Iron deficiency anemia 07/16/2013 Abnormal glandular Papanicolaou smear of cervix 12/20/2011 Overview (11/17/2014): 2001 2007, 2009, 2012 Paps wnl. GENERALIZED ANXIETY DIS 04/16/2003 documented as of this encounter (statuses as of 03/25/2024) Resolved Problems Problem Noted Date Diagnosed Date Resolved Date Elderly multigravida 09/21/2004 010 ADVANCE DIRECTIVE INFORMATION 07/03/2004 08/31/2017 Overview (07/03/2004): No, Advance Directive brochure given to patient at prior appointment. documented as of this encounter (statuses as of 03/25/2024) Immunizations Name Administration Dates Next Due COVID-19 mRNA, LNP-s, No Pre serve, 2-Dose Series ([employer]) 01/20/2021,03/25/2020,03/05/2020 COVID-19, LNP-s, No Preserve , Trevon-sucrose, Ages 12+ ([employer]) 11/02/2021 Seasonal Influenza Vac., MDV , IM, 0.5 mL (Fluzone) 12/04/2014,11/08/2012,11/13/2011 Seasonal Influenza, PF, 6 M & above, IM , (FluLaval or Fluzone) 12/02/2022,12/09/2021 Seasonal Influenza, Quadriva lent, No Preserve, IM 12/03/2020,12/12/2018,12/13/2017 Seasonal Influenza, Trivalen t, (IIV3), PF, (Fluzone) 11/23/2023 TD, Preservative Free 07/16/2013 TDAP (age 10 and older)(Boostrix) 08/31/2019 TDAP, Age 7 and older, IM (Adacel) 07/31/2002 Zoster Vaccine Recombinant (Shingrix) 09/02/2019 ,05/13/2019 documented as of this encounter Social History Tobacco Use Types Packs/Day Years Used Date Smoking Tobacco: Never Smokeless Tobacco: Never Alcohol Use Standard Drinks/Week Comments Yes 2 (1 standard drink = 0.6 oz pur e alcohol) PHQ-2 Answer Date Recorded PHQ Adult Total Score 0 06/27/2022 Hunger Vital Sign Answer Date Recorded Within the past 12 months, y ou worried that your food would run out before you got the money to buy more. Never true 05/13/19 23 Within the past 12 months, t he food you bought just didn't last and you didn't have money to get more. Never true 05/12/2022 Utilities Answer Date Recorded Do you have trouble paying y our heating, water, or electric bill? (Adult - for ages 18 years and over) Not on file 08/22/2023 Is your family able to pay t he heat, water, or electric bill? (Household - for ages 0-17 years) Not on file 08/22/2023 Does your family have access to good internet? (Household - for ages 0-17 years) Not on file 08/22/2023 Social Connections Answer Date Recorded How often do you feel lonely or isolated from those around you? (Adult - for ages 18 years and over) Not on file 08/22/2023 Comments No Sex and Gender Information Value Date Recorded Sex Assigned at Female 10/31/2018 9:43 AM EDT Legal Sex Female 6:14 AM EST Gender Identity Female 10/31/2018 9:43 AM EDT Sexual Orientation Straight 05/12/2022 9: 26 AM EST Sexual Orientation Choose not to disclose 2022 9:26 AM EST Occupation Industry Job Start Date Job End Date [facility] Not on file Not on file Not on fi le documented as of this encounter Plan of Treatment Upcoming Encounters Date Type Department Care Team (Late st Contact Info) Description 05/16/2024 8:15 AM EDT Imaging Radiology [facility] 1st [facility], [place] [address] [place] [phone] 05/30/2024 9:45 AM EDT Telemedicine Genetics [facility], [facility] [address] [place] [address] Mary Justin, MS [address] [place] [address] 09/24/2024 3:40 PM EDT Office Visit General Internal Medicine [facility] [address] [facility] [place] [address] Benito Gold MD [address] [place] [address] Scheduled Procedures Name Priority Associated Diagnoses Date/Ti me ESOPHAGOGASTRODUODENOSCOPY ( EGD), FLEXIBLE, TRANSORAL, DIAGNOSTIC Recall Pancreatic rests in stomach COLONOSCOPY FLEXIBLE PROXIMAL DIAGNOSTIC Recall History of colon polyps Health Maintenance Due Date Last Done Comments Cologuard 07/05/2012 Sigmoidoscopy 07/05/2012 Pneumococcal Vaccine: 50+ Years (1 of 1 - PCV) 07/05/2017 Depression Monitoring 06/28/2023 06/27/2022 COVID-19 Vaccine ( season) 2023 11/02/2021, 01/20/2021, 03/25/2020, Additional history exists Fecal Occult Blood Test 06/11/2024 06/12/2023, 06/11 Mammogram 10/04/2024 10/05/2023, 03/2023, 09/28/2022, Additional history exists Pap Smear 05/16/2025 05/16/2022, 08/2018, 02/08/2019, Additional history exists Colonoscopy 01/18/2026 01/18/2021, 01/04, 01/16/2013, Additional history exists Colorectal Cancer Screening 01/18/2026 Cervical Cancer Screening 05/17/2027 HPV/Co-Test 05/17/2027 05/16/2022 DXA Scan 12/29/2027 12/28/2022, 12/28/2022 Lipid Panel 10/01/2028 10/02/2023, 07/05, 06/24/2020, Additional history exists DTap/Tdap Vaccines (4 - Td or Tdap) 08/30/2029 08/31/2019, 07/16/2013, 07/31/2002 Zoster Vaccines Completed 09/02/2019, 05/13/2019 RETIRED - COLONOSCOPY-EVERY 5 YRS AGES 18-100 Discontinued 01/18/2021, 01/18/2021, 01/16/2013, Additional history exists Influenza Vaccine (FLU shot) Completed 11/23/2023, 12/02/2022, 12/09/2021, Additional history exists HPV (Gardasil) Vaccine Aged Out No lo nger eligible based on patient's age to complete this topic MENINGOCOCCAL (MENACTRA/MENVEO) Aged Out No longer eligible based on patient's age to complete this topic documented as of this encounter Medical Devices Not on filedocumented as of this encounter Care Teams Waste Management Recycling Technician Relationship Specialty Start Date End Date Benito Gold MD [address] [facility] [place] [address] PCP - General Internal Medicine 12/20/11 documented as of this encounter
--- OUTSIDE RECORDS SUMMARY | 2024-04-18 19:03 | External Medical Summary | Summary of Care ---
Author Name Unknown Organization [facility] Address [address] [place] [address] Phone [phone] Care Team Providers Care Worm Farm Laborer Name Role Phone Benito Gold MD Primary Care Provider + Reason for Visit * Reason Comments Outpatient Testing Encounter Details Date Type Department Care Team (Late st Contact Info) Description 12/08/2023 8:30 AM EDT Laboratory Laboratory [facility] [place] [address] [place] [phone] [facility] [address] [place] [address] Excessive gas Allergies Active Allergy Reactions Criticality Noted Date Comments Erythromycin 04/16/2003 GI UPSET documented as of this encounter (statuses as of 12/08/2023) Medications Medication Sig Dispensed Refills Start Date End Date Status [place]-3 Fatty Acids (FISH OIL) 1000 MG Capsule Take 1 Capsule by mouth in the morning. Active Trintellix 10 MG Oral Tablet (Vortioxetine HBr) take 1 pill by mouth daily for mood 90 Tablet 04/20/2023 Active buPROPion HCl ER (XL) 300 MG Oral Tablet Extended Release 24 Hour (Wellbutrin XL) take 1 tablet by mouth every morning for mood and attention 90 Tablet 04/20/2023 Active valACYclovir HCl 1 GM Oral Tablet (Valtrex)Indications :Cold sore 2 tablets in AM and PM x 1 day during a cold sore flare 20 Tablet 1 05/24/2023 Active buPROPion HCl ER (XL) 300 MG Oral Tablet Extended Release 24 Hour (Wellbutrin XL) Take one tablet by mouth once a day 90 Tablet 11/15/2023 Active documented as of this encounter (statuses as of 12/08/2023) Active Problems Problem Noted Date Diagnosed Date Pancreas cyst 06/23/2021 FH: pancreatic cancer 06/23/2021 Mild mitral regurgitation 07/01/2020 Mitral prolapse 07/01/2020 Major depressive disorder, recurrent, in full re mission 05/13/2019 Hx of nonmelanoma skin cancer 04/22/2019 Overview: Hx NMSC - BCC L forehead and R medial canthus 2017 Scar condition and fibrosis of skin 02/08/2018 Iron deficiency anemia 07/16/2013 Abnormal glandular Papanicolaou smear of cervix 12/20/2011 Overview: 2001 2007, 2009, 2012 Paps wnl. GENERALIZED ANXIETY DIS 04/16/2003 documented as of this encounter (statuses as of 12/08/2023) Resolved Problems Problem Noted Date Diagnosed Date Resolved Date Elderly multigravida 09/21/2004 010 ADVANCE DIRECTIVE INFORMATION 07/03/2004 08/31/2017 Overview: No, Advance Directive brochure given to patient at prior appointment. documented as of this encounter (statuses as of 12/08/2023) Immunizations Name Administration Dates Next Due COVID-19 mRNA, LNP-s, No Pre serve, 2-Dose Series ([employer]) 01/20/2021,03/25/2020,03/05/2020 COVID-19, LNP-s, No Preserve , Trevon-sucrose, Ages 12+ ([employer]) 11/02/2021 Seasonal Influenza Vac., MDV , [...] years and over) Not on file 08/22/2023 Sex and Gender Information Value Date Recorded Sex Assigned at Female 10/31/2018 9:43 AM EDT Gender Identity Female 10/31/2018 9:43 AM EDT Sexual Orientation Straight 05/12/2022 9: 26 AM EST Sexual Orientation Choose not to disclose 2022 9:26 AM EST Job Start Date Occupation Industry Not on file Not on file Not on file documented as of this encounter Plan of Treatment Upcoming Encounters Date Type Department Care Team (Late st Contact Info) Description 05/16/2024 8:15 AM EDT Imaging Radiology [address] [place] [address] 09/24/2024 3:40 PM EDT Office Visit General Internal Medicine [facility] [address] [facility] [place], [place] [address] Benito Gold MD [address] [facility] [place], [place] [address] Pending Results Name Type Priority Associated Diagnoses Date /Time CELIAC DISEASE SEROLOGY REFLEX PANEL Lab Routine Excessive gas 12/08/2023 8:24 AM EDT CELIAC DISEASE SEROLOGY Lab Routine Excessive gas 12/08/2023 8:24 AM EDT Scheduled Procedures Name Priority Associated Diagnoses Date/Ti me ESOPHAGOGASTRODUODENOSCOPY ( EGD), FLEXIBLE, TRANSORAL, DIAGNOSTIC Recall Pancreatic rests in stomach COLONOSCOPY FLEXIBLE PROXIMAL DIAGNOSTIC Recall History of colon polyps Health Maintenance Due Date Last Done Comments Cologuard 07/05/2012 Sigmoidoscopy 07/05/2012 Depression Monitoring 06/28/2023 06/27/2022 COVID-19 Vaccine ( season) 2023 11/02/2021, 01/20/2021, 03/25/2020, Additional history exists Fecal Occult Blood Test 06/11/2024 06/12/2023, 06/11 Mammogram 10/04/2024 10/05/2023, 0803/2023, 09/28/2022, Additional history exists Pap Smear 05/16/2025 05/16/2022, 12/08/2018, 02/08/2019, Additional history exists Colonoscopy 01/18/2026 01/18/2021, [...] on patient's age to complete this topic Pneumococcal Vaccine: Pediatrics (0 to 5 Years) and At-Risk Patients (6 to 64 Years) Aged Out No longer eligible based on patient's age to complete this topic documented as of this encounter Medical Devices Not on filedocumented as of this encounter Visit Diagnoses Diagnosis Excessive gas Flatulence, eructation, and gas pain documented in this encounter Care Teams Worm Farm Laborer Relationship Specialty Start Date End Date Benito Gold MD [address] [facility] [place] [address] PCP - General Internal Medicine 12/20/11 documented as of this encounter
--- OUTSIDE RECORDS SUMMARY | 2024-04-18 19:03 | External Medical Summary | Summary of Care ---
Author Name Unknown Organization [facility] Address [address] [place] [address] Phone [phone] Care Team Providers Care Pet Technologist Name Role Phone Benito Gold MD Primary Care Provider + Encounter Details Date Type Department Care Team (Late st Contact Info) Description 11/27/2023 Orders Only Outcomes Research Department [address] [place] [address] Yoanna Hill CHRA [employer] [facility] Other*[id number] Allergies Active Allergy Reactions Criticality Noted Date Comments Erythromycin 04/16/2003 GI UPSET documented as of this encounter (statuses as of 11/27/2023) Medications Medication Sig Dispensed Refills Start Date End Date Status [place]-3 Fatty Acids (FISH OIL) 1000 MG Capsule [...] as of this encounter (statuses as of 11/27/2023) Active Problems Problem Noted Date Diagnosed Date [...] as of this encounter (statuses as of 11/27/2023) Resolved Problems Problem Noted Date Diagnosed Date Resolved Date Elderly multigravida 09/21/2004 010 ADVANCE DIRECTIVE INFORMATION 07/03/2004 08/31/2017 Overview: No, Advance Directive brochure given to patient at prior appointment. documented as of this encounter (statuses as of 11/27/2023) Immunizations Name Administration Dates Next Due COVID-19 mRNA, LNP-s, No Pre serve, 2-Dose Series ([employer]) 01/20/2021,03/25/2020,03/05/2020 COVID-19, LNP-s, No Preserve , Trevon-sucrose, Ages 12+ ([employer]) 11/02/2021 Seasonal Influenza, PF, 6 M & above, IM , (FluLaval or Fluzone) 12/02/2022,12/09/2021 Seasonal Influenza, Quadriva lent, No Preserve, IM 12/03/2020,12/12/2018,12/13/2017 Seasonal Influenza, Trivalen t, (IIV3), PF, (Fluzone) 11/23/2023 Seasonal Influenza, Trivalen t, (IIV3), with Preserv, (Fluzone) 12/04/2014,11/08/2012,11/13/2011 TD, Preservative Free 07/16/2013 TDAP (age 10 [...] Description 05/16/2024 8:15 AM EDT Imaging Radiology [facility] [address] [facility] [address] [facility] [place] [address] 09/24/2024 3:40 PM EDT Office Visit General Internal Medicine [facility] [place] [address] [place] [place] [address] Benito Gold MD [address] [facility] [place] [address] Scheduled Orders Name Type Priority Associated Diagnoses Orde r Schedule MYCODE SUBSEQUENT ADULT Lab Routine [employer] Research Other*[id number] Every 6 Months for 2 Occurrences starting 11/27/2023 until 12/16/2024 Scheduled Procedures Name Priority Associated Diagnoses Date/Ti [...] Additional history exists Pap Smear 05/16/2025 05/16/2022, 1208/2018, 02/08/2019, Additional history exists Colonoscopy 01/18/2026 01/18/2021, [...] as of this encounter Visit Diagnoses Diagnosis [employer] Other*[id number] documented in this encounter Care Teams Pet Technologist Relationship Specialty Start Date End Date Benito Gold MD [address] [facility] [place] [address] PCP - General Internal Medicine 12/20/11 documented as of this encounter
--- OUTSIDE RECORDS SUMMARY | 2024-04-18 19:03 | External Medical Summary | Summary of Care ---
Author Name Unknown Organization [facility] Address [address] [place] [address] Phone [phone] Care Team Providers Care Cleaning Laborer Name Role Phone Benito Gold MD Primary Care Provider + Reason for Referral * Evaluate & Treat - Unlimited Visits (Within 10 days (routine)) - Pending Review Specialty Diagnoses / Procedures Referred By Daljit boss Referred To Contact Medical Genetics / Hematology Oncology Diagnoses Family history of malignant neoplasm of pancreas Beulah Márquez PA-C [address] [facility] [address] Referral ID Status Reason Start Date Expiration Date Visits Requested Visits Authorized [id number] Pending Review Specialty Services Required 4 [phone] Question Answer Referral Priority Within 10 days (routine) Where should this appointment be scheduled? [facility] Is this referral request related to one of the following genetics sub-specialties? If unsure of category, use Medical Genetics Ask-A-Doc. Cancer Personal history of cancer? Yes Type of cancer and age at diagnosis: basal cell skin cancer Family history of cancer? Yes Describe family history of cancer: mom had history of pancreatic Cancer, paternal grandmother had stomach cancer Reason for Visit * Reason Onset Date Comments Follow Up 12/29/2023 Outpatient Testing 12/29/2023 Encounter Details Date Type Department Care Team (Late st Contact Info) Description 12/29/2023 Telephone Gastroenterology, Jerry Jacome [address] [facility] [place] [phone] Beulah Márquez PA-C [address] [place] [address] Follow Up; Outpatient Testing Allergies Active Allergy Reactions Criticality Noted Date Comments Erythromycin 04/16/2003 GI UPSET documented as of this encounter (statuses as of 12/29/2023) Medications Medication Sig Dispensed Refills Start Date End Date Status [place]-3 Fatty Acids (FISH OIL) 1000 MG Capsule [...] as of this encounter (statuses as of 12/29/2023) Active Problems Problem Noted Date Diagnosed Date 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 GENERALIZED ANXIETY DIS 04/16/2003 documented as of this encounter (statuses as of 12/29/2023) Resolved Problems Problem Noted Date Diagnosed Date Resolved Date Elderly multigravida 09/21/2004 010 ADVANCE DIRECTIVE INFORMATION 07/03/2004 08/31/2017 Overview: No, Advance Directive brochure given to patient at prior appointment. documented as of this encounter (statuses as of 12/29/2023) Immunizations Name Administration Dates Next Due COVID-19 mRNA, LNP-s, No Pre serve, 2-Dose Series (Pfizer) 01/20/2021,03/25/2020,03/05/2020 COVID-19, LNP-s, No Preserve , Trevon-sucrose, Ages 12+ (Pfizer) 11/02/2021 Seasonal Influenza Vac., MDV , IM, [...] on file documented as of this encounter Miscellaneous Notes * Telephone Encounter - Beulah Márquez PA-C - 12/29/2023 2:10 PM EDT Please arrange genetic evaluation/testing referral for pt - family h/o pancreatic cancer in her mom, and also paternal grandmother had stomach cancer. Beulah Márquez PA-C 12/29/2023 Department of Gastroenterology documented in this encounter Plan of Treatment Upcoming Encounters Date Type Department Care Team (Late st Contact Info) Description 05/16/2024 8:15 AM EDT Imaging Radiology [facility] 1st [facility] [address] [facility] [place] [address] 09/24/2024 3:40 PM EDT Office Visit General Internal Medicine Stephany Domingo [place] [address] [place] [address] Benito Gold MD [address] [facility] [place] [address] Scheduled Procedures Name Priority Associated Diagnoses Date/Ti me ESOPHAGOGASTRODUODENOSCOPY ( EGD), FLEXIBLE, TRANSORAL, DIAGNOSTIC Recall Pancreatic rests in stomach COLONOSCOPY FLEXIBLE PROXIMAL DIAGNOSTIC Recall History of colon polyps Scheduled Referrals Name Type Priority Associated Diagnoses Orde r Schedule GENETICS REFERRAL OP Referral Within 10 days (routine) Family history of malignant neoplasm of pancreas Ordered: 12/29/2023 Health Maintenance Due Date Last Done Comments [...] as of this encounter Visit Diagnoses Diagnosis Family history of malignant neoplasm of pancreas- Primary Family history of malignant neoplasm of gastrointestinal tract documented in this encounter Care Teams Cleaning Laborer Relationship Specialty Start Date End Date Benito Gold MD [address] [place] [address] PCP - General Internal Medicine 12/20/11 documented as of this encounter
--- OUTSIDE RECORDS SUMMARY | 2024-04-18 19:03 | External Medical Summary ---
Author Name Unknown Address Unknown Organization [id number]:[facility] - [facility] [place] [address] Laboratory Report Ordering Provider Test Date Status OSWALDO DANIEL 12/08/2023 08:24:08 Final Observation Date Value Abnormality Reference (Units) Status CELIAC DISEASE SCREEN INTERP - [facility] 12/08/2023 08:24:08 No serological evidence of celiac disease. Final Tissue transglutaminase IgA Ab [Units/volume] in Serum by Immunoassay 12/08/2023 08:24:08 0.3 <7 (U/mL) Final Tissue transglutaminase IgA Ab [Presence] in Serum by Immunoassay 12/08/2023 08:24:08 Negative Negative Final IgA 12/08/2023 08:24:08 178 70-400 (mg/dL) Final Performing Location [facility] - [address] [place] [address]
--- OUTSIDE RECORDS SUMMARY | 2024-04-18 19:03 | External Medical Summary | Summary of Care ---
Author Name Unknown Organization [facility] Address [address] [place] [address] Phone [phone] Care Team Providers Care Credit Review Manager Name Role Phone Benito Gold MD Primary Care Provider + Reason for Referral * Evaluate & Treat - Unlimited Visits (Within 10 days (routine)) - Pending Review Specialty Diagnoses / Procedures Referred By Daljit boss Referred To Contact Medical Genetics / Hematology Oncology Diagnoses Family history of malignant neoplasm of pancreas Beulah Márquez PA-C [address] [facility] [place] [address] Referral ID Status Reason Start Date Expiration Date Visits Requested Visits Authorized [id number] Pending Review Specialty Services Required 4 999 [...] Description 12/29/2023 Telephone Gastroenterology, Jerry Jacome [address] [facility] [place] [phone] Beulah Márquez PA-C [address] [place] [address] Follow Up; Outpatient Testing Allergies Active Allergy Reactions Criticality Noted Date Comments Erythromycin 04/16/2003 GI UPSET documented as of this encounter (statuses as of 12/29/2023) Medications Medication Sig Dispensed Refills Start Date End Date Status [place]-3 Fatty Acids (FISH OIL) 1000 MG Capsule [...] and also paternal grandmother had stomach cancer. Beualh Márquez PA-C 12/29/2023 Department of Gastroenterology documented in this encounter Plan of Treatment Upcoming Encounters Date Type Department Care Team (Late st Contact Info) Description 05/16/2024 8:15 AM EDT Imaging Radiology [facility] 1st [facility] [address] [facility] [place] [address] 09/24/2024 3:40 PM EDT Office Visit General Internal Medicine Stephany Domingo [place] [address] [place] [address] Benito Gold MD [address] [facility] [place] [address] Scheduled Procedures Name Priority Associated Diagnoses Date/Ti [...] tract documented in this encounter Care Teams Credit Review Manager Relationship Specialty Start Date End Date Benito Gold MD [address] [place] [address] PCP - General Internal Medicine 12/20/11 documented as of this encounter
--- OUTSIDE RECORDS SUMMARY | 2024-04-18 19:03 | External Medical Summary | Summary of Care ---
Author Name Unknown Organization [facility] Address [address] [place] [address] Phone [phone] Care Team Providers Care Digging Machine Operator Name Role Phone Benito Gold MD Primary Care Provider + Reason for Referral * Precert (Within 10 days (routine)) - Pending Review Specialty Diagnoses / Procedures Referred By Daljit boss Referred To Contact Radiology Diagnoses Pancreatic cyst Procedures MRI ABDOMEN W WO CONTRAST Beulah Márquez PA-C [address] [place] [address] Referral ID Status Reason Start Date Expiration Date V isits Requested Visits Authorized [id number] Pending Review 05/13/2024 999 999 Reason for Visit * Reason Comments Follow Up Pancreatic Cyst Encounter Details Date Type Department Care Team (Late st Contact Info) Description 11/14/2023 1:30 PM EDT Office Visit Gastroenterology, [facility] [address] [facility] [place] [address] Beulah Márquez PA-C [address] [place] [address] Pancreatic cyst*; Excessive gas Allergies Active Allergy Reactions Criticality Noted Date Comments Erythromycin 04/16/2003 GI UPSET documented as of this encounter (statuses as of 11/17/2023) Medications Medication Sig Dispensed Refills Start Date End Date Status [place]-3 Fatty Acids (FISH OIL) 1000 MG Capsule [...] Active valACYclovir HCl 1 GM Oral Tablet (Valtrex)Indicati ons:Cold sore 2 tablets in AM and PM x 1 day during a cold sore flare 20 Tablet 1 05/24/2023 Active guanFACINE HCl 1 MG Oral Tablet (Tenex) Take 1 Tablet by mouth at bedtime. 09/13/2023 11/14/2023 Discontinued (Patient preference/d iscontinuati on) Iron-Vitamin C 65-125 MG Oral Tablet (Vitron C)Indications:Oth er iron deficiency anemia One pill every other day 09/25/2023 11/14/2023 Discontinued (Patient preference/d iscontinuati on) documented as of this encounter (statuses as of 11/17/2023) Active Problems Problem Noted Date Diagnosed Date [...] as of this encounter (statuses as of 11/17/2023) Resolved Problems Problem Noted Date Diagnosed Date Resolved Date Elderly multigravida 09/21/2004 010 ADVANCE DIRECTIVE INFORMATION 07/03/2004 08/31/2017 Overview: No, Advance Directive brochure given to patient at prior appointment. documented as of this encounter (statuses as of 11/17/2023) Immunizations Name Administration Dates Next Due COVID-19 mRNA, LNP-s, No Pre serve, 2-Dose Series (Pfizer) 01/20/2021,03/25/2020,03/05/2020 COVID-19, LNP-s, No Preserve , Trevon-sucrose, Ages 12+ (Pfizer) 11/02/2021 Seasonal Influenza, PF, 6 M & above, IM , (FluLaval or Fluzone) 12/02/2022,12/09/2021 Seasonal Influenza, Quadriva lent, No Preserve, IM 12/03/2020,12/12/2018,12/13/2017 Seasonal Influenza, Trivalen t, (IIV3), with Preserv, [...] on file documented as of this encounter Last Filed Vital Signs Vital Sign Reading Time Taken Comments Blood Pressure 92/62 11/14/2023 1:41 PM EDT Pulse 67 11/14/2023 1:41 PM EDT Temperature 36.3 C (97.3 F) 11/14/2023 1:41 PM ED T Respiratory Rate 18 11/14/2023 1:41 PM EDT Oxygen Saturation - - Inhaled Oxygen Concentration - - Weight 62.4 kg (137 lb 8 oz) 11/14/2023 1:41 PM EDT Height - - Body Mass Index 21.54 09/25/2023 2:35 PM EDT documented in this encounter Progress Notes * Beulah Márquez PA-C - 11/14/2023 2:07 PM EDT DATE OF SERVICE: 11/14/2023 REFERRING PHYSICIAN: Benito Gold MD Nursing Notes: Charity Lainez, RN 11/14/23 1343 Signed Chief Complaint Patient presents with Follow Up Pancreatic Cyst Pt has no complaints today. CC: Panc cyst Office Visit 11/14/23: Recall pt is a 58 year old y/o female with PMHx of episodic epigastric abdominal pain w/ radiation to bilateral upper quadrants and to her back associated with gas/bloat w/o nausea/vomiting. LFTs WNL, lipase slightly elevated. S/P EGD/EUS w/ pancreatic cyst. MRI this year May 2023 w/ stable panc cyst. Overall she feels well. Avoids dairy, cauliflower. Carbs give her bloating postprandially. No abd pain. Mom had panc CA. Sister has Crohn's. Office Visit 07/13/2022 : Pt was seen and evaluated, chart reviewed. S/P exploratory laparotomy withright hemicolectomy for cecal volvulus / bascule around May 2022. Has had intermittent upper abd pain. History of GB sludge. This started to become more pronounced about 2 weeks ago after lunch. Was severe. 09/12. Associated with nausea/vomiting. Symptoms lasts 5+ hours. Has not occurred since. Telemedicine Visit 07/27/2021: Feeling well. Has not had any issues with her GI system since her last appt. No abd pain. No nausea or vomiting. No GERD or dysphagia. Bowels can tend towards constipation, might miss 1-2 days. Will use Senna PRN with good response. No black or bloody stools. No weightloss. No fever, chills, CP, SOB. 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 MRI 2022: Stable side-branch IPMNs in the pancreas, measuring up to 1 cm. MRI 2020: Multiple pancreatic cystic lesions, measuring up to 12 mm and most consistent with side branch IPMNs. Recommend follow-up MRI with MRCP in 1 year. ABD US 2013: Unremarkable right upper quadrant ultrasound. Colonoscopy 2020: The examined portion of the ileum was normal. - One 6 mm polyp in the descending colon, removed with a cold snare. Resected and retrieved. - Non-bleeding internal hemorrhoids. EGD 2020: Normal esophagus. - Scar in the gastric antrum, no residual pancreatic rest seen. - Normal duodenal bulb and second portion of the duodenum EUS 2020: There was no sign of significant pathology in the ampulla. - There was no sign of significant pathology in the common bile duct. - Hyperechoic material consistent with sludge was visualized endosonographically in the gallbladder. - There was no evidence of significant pathology in the visualized portion of the liver. - Three 6 mm cysts were seen in the pancreatic body with no worrisome features likely side branch IPMN. - There was no sign of significant pathology in the entire pancreas otherwise. - Endosonographic images of the left adrenal gland were unremarkable. - The celiac trunk was endosonographically normal. - Discharge patient to home. - Perform magnetic resonance imaging (MRI) with gadolinium in 1 year for surveillance on the pancreas cyst. - Return to referring physician. - If pain recurs in the future then consider referral to a surgeon for cholecystectomy. EGD 2020: Normal esophagus. - Erythematous mucosa in the antrum. Biopsied. - A single submucosal papule (nodule) found in the stomach with central depression. Banded without resection (BWR). Biopsied. - Normal duodenal bulb and second portion of the duodenum. Biopsied EGD 2012: LA Grade A esophagitis. Biopsied. - A single small papule (nodule) with was found in the stomach. Biopsied. - Normal duodenal bulb and 2nd part of the duodenum. Biopsied. Colonoscopy 2012: The entire examined colon is normal. - The examined portion of the ileum was normal. - Multiple biopsies were obtained in the sigmoid colon, in the descending colon and in the ascending colon. Family history of GI malignancy: mom w/ pancreatic CA paternal grandmother had stomach cancer Fam history of liver disease: REVIEW OF SYSTEMS: GENERAL: Denies fevers, chills or sweats SKIN: Denies rashes or other skin lesions HEENT: Denies mouth sores or difficulty swallowing CARDIO: Denies chest pain, syncope RESP: Denies cough, shortness of breath GI: Refer to HPI : Denies urinary symptoms MS: Denies new joint pain or swelling HEME: Denies bleeding or bruising NEURO: Denies lightheadedness or dizziness All other findings negative. Past Medical History: Diagnosis Date Abnormal glandular Papanicolaou smear of cervix 12/20/2011 Generalized anxiety disorder [place] Iron deficiency anemia 07/16/2013 Major depressive disorder in full remission (HCC) Mild mitral regurgitation 07/01/2020 Mitral prolapse 07/01/2020 Pancreas cyst 06/23/2021 Scar conditions and fibrosis of skin Family History Problem Relation Name Age of Onset Stroke Mother Pancreatic cancer Mother Other (lupus) Mother vaculitis Gastro-intestinal disorder Sister Chrons vs UC Arthritis Grandmother (Maternal) Hypertension Grandmother (Maternal) Stroke Grandmother (Maternal) Diabetes Grandfather (Maternal) Leukemia Grandfather (Maternal) Breast Cancer Grandmother (Paternal) Breast Cancer Aunt (Paternal) Past Surgical History: Procedure Laterality Date DELIVERY 2002, 2005 COLONOSCOPY, DIAGNOSTIC (RECTUM) 01/16/2013 COLONOSCOPY FLEXIBLE PROXIMAL DIAGNOSTIC performed by Johnathon Baires MD at [facility] COLONOSCOPY, DIAGNOSTIC (RECTUM) 01/18/2021 hyperplastic/serrated polyp, repeat 5 yr / COLONOSCOPY FLEXIBLE PROXIMAL DIAGNOSTIC performed by Ash Wong MD at [facility] EGD, FLEXIBLE, DIAGNOSTIC 01/16/2013 UPPER GI ENDOSCOPY DIAGNOSTIC performed by Johnathon Baires MD at [facility] EGD, FLEXIBLE, DIAGNOSTIC 07/23/2020 single gastric submucosal papule / ESOPHAGOGASTRODUODENOSCOPY (EGD), FLEXIBLE, TRANSORAL, DIAGNOSTIC performed by Ash Wong MD at [facility] EGD, FLEXIBLE, DIAGNOSTIC 01/18/2021 normal / ESOPHAGOGASTRODUODENOSCOPY (EGD), FLEXIBLE, TRANSORAL, DIAGNOSTIC performed by Ash Wong MD at [facility] EGD, W/ENDOSCOPIC US 07/23/2020 pancreatic rest, repeat EGD 6 mo / ESOPHAGOGASTRODUODENOSCOPY (EGD), FLEXIBLE, TRANSORAL, ENDOSCOPIC ULTRASOUND performed by Ash Wong MD at [facility] MISCELLANEOUS ORDER benign growth neck removed age 15 [place] COLECTOMY PARTIAL W/ANASTOMOSIS Right 04/19/2022 exploratory laparotomy with right hemicolectomy done through ED at [facility] by Dr David Akers @[email or web address]@ Review of patient's allergies indicates: Allergen Reactions Erythromycin GI UPSET Current Outpatient Medications Medication Sig Dispense Refill [place]-3 Fatty Acids (FISH OIL) 1000 MG Capsule Take 1 Capsule by mouth in the morning. Trintellix 10 MG Oral Tablet (Vortioxetine HBr) take 1 pill by mouth daily for mood 90 Tablet 0 buPROPion HCl ER (XL) 300 MG Oral Tablet Extended Release 24 Hour (Wellbutrin XL) take 1 tablet by mouth every morning for mood and attention 90 Tablet 0 valACYclovir HCl 1 GM Oral Tablet (Valtrex) 2 tablets in AM and PM x 1 day during a cold sore flare20 Tablet 1 No current facility-administered medications for this visit. EXAM: BP 92/62 | Pulse 67 | Temp 36.3 C (97.3 F) | Resp 18 | Wt 62.4 kg (137 lb 8 oz) | LMP 05/30/2015 | BMI 21.54 kg/m | BSA 1.72 m GENERAL: Well developed and well nourished in no acute distress. SKIN: Warm, dry, intact, no rash, jaundice, or spider angiomata HEENT: Normocephalic, sclera clear NECK: Supple, full ROM HEART: Regular rate & rhythm, no murmurs and no gallops. LUNGS: Clear to auscultation bilaterally, no respiratory distress ABDOMEN: Soft, nontender, normal bowel sounds, no masses or hepatosplenomegaly. EXTREMITIES: No palmar erythema, cyanosis, or edema. NEURO: A&O x 3. Sensory/Motor grossly normal. ASSESSMENT AND PLAN: 58-year-old female with pancreatic cystic lesion, gas. (K86.2) Pancreatic cyst (primary encounter diagnosis) Plan: MRI ABDOMEN W WO CONTRAST - Continue yearly MRI imaging May 2024 (R14.3) Excessive gas Plan: CELIAC DISEASE SEROLOGY REFLEX PANEL, TISSUE TRANSGLUTAMINASE IGA ANTIBODY - Check TTG, Celiac -Trial of Probiotic - Consider ?SIBO Return 1 year - ED for emergencies - Please call with questions or concerns Beulah Márquez PA-C Division of Gastroenterology [facility] This chart was completed in part utilizing [employer]ze Speech Voice Recognition Software. Grammatical errors, random word insertions, prounoun errors, and incomplete sentences are an occasional consequence of this system due to software limitations, ambient noise, and hardware issues. Any formal questions or concerns about the content, text, or information contained within the body of this dictation should be directly addressed to the provider for clarification. documented in this encounter Nursing Notes * Charity Lainez RN - 11/14/2023 1:40 PM EDT Chief Complaint Patient presents with Follow Up Pancreatic Cyst Pt has no complaints today. documented in this encounter Plan of Treatment Upcoming Encounters Date Type Department Care Team (Late st Contact Info) Description 05/16/2024 8:15 AM EDT Imaging Radiology [facility] 1st [facility] [address] [facility] [place] [address] 09/24/2024 3:40 PM EDT Office Visit General Internal Medicine [facility] [address] [facility] [address] Benito Gold MD [address] [place] [address] Scheduled Orders Name Type Priority Associated Diagnoses Order Schedule CELIAC DISEASE SEROLOGY REFLEX PANEL Lab Routine Excessive gas Expected: 11/14/2023, Expires: 11/13/2024 MRI ABDOMEN W WO CONTRAST Medical Imaging Routine Pancreatic cyst Expected: 05/13/2024, Expires: 12/13/2024 TISSUE TRANSGLUTAMINASE IGA ANTIBODY Lab Routine Excessive gas Expected: 11/14/2023, Expires: 11/13/2024 Scheduled Procedures Name Priority Associated Diagnoses Date/Ti me ESOPHAGOGASTRODUODENOSCOPY ( EGD), FLEXIBLE, TRANSORAL, DIAGNOSTIC Recall Pancreatic rests in stomach COLONOSCOPY FLEXIBLE PROXIMAL DIAGNOSTIC Recall History of colon polyps Health Maintenance Due Date Last Done Comments Cologuard 07/05/2012 Sigmoidoscopy 07/05/2012 Depression Monitoring 06/28/2023 06/27/2022 COVID-19 Vaccine ( season) 2023 11/02/2021, 01/20/2021, 03/25/2020, Additional history exists Influenza Vaccine (FLU shot) (#1) 2023 12/02/2022, 12/09/2021, 12/03/2020, Additional history exists Fecal Occult Blood Test 06/11/2024 06/12/2023, 06/11 Mammogram 10/04/2024 10/05/2023, 0803/2023, 09/28/2022, Additional history exists Pap Smear 05/16/2025 05/16/2022, 12/08/2018, 02/08/2019, Additional history exists Colonoscopy 01/18/2026 01/18/2021, 01/04, 01/16/2013, Additional history exists Colorectal Cancer Screening 01/18/2026 Cervical Cancer Screening 05/17/2027 HPV/Co-Test 05/17/2027 05/16/2022 DXA Scan 12/29/2027 12/28/2022, 12/28/2022 Lipid Panel 10/01/2028 10/02/2023, 05/, 06/24/2020, Additional history exists DTap/Tdap Vaccines (4 - Td or Tdap) 08/30/2029 08/31/2019, 07/16/2013, 07/31/2002 Zoster Vaccines Completed 09/02/2019, 05/13/2019 RETIRED - COLONOSCOPY-EVERY 5 YRS AGES 18-100 Discontinued 01/18/2021, 01/18/2021, 01/16/2013, Additional history exists HPV (Gardasil) Vaccine Aged [...] as of this encounter Visit Diagnoses Diagnosis Pancreatic cyst- Primary Cyst and pseudocyst of pancreas Excessive gas Flatulence, eructation, and gas pain documented in this encounter Care Teams Digging Machine Operator Relationship Specialty Start Date End Date Benito Gold MD [address] [facility] [place] [address] PCP - General Internal Medicine 12/20/11 documented as of this encounter"
--- OUTSIDE RECORDS SUMMARY | 2024-04-18 19:03 | External Medical Summary | Summary of Care ---
Author Name Unknown Organization [facility] Address [address] [place] [address] Phone [phone] Care Team Providers Care Curriculum Writer Name Role Phone Benito Gold MD Primary Care Provider + Reason for Referral * Evaluate & Treat - Unlimited Visits (Within 10 days (routine)) - Pending Review Specialty Diagnoses / Procedures Referred By Daljit boss Referred To Contact Medical Genetics / Hematology Oncology Diagnoses Family history of malignant neoplasm of pancreas Beulah Márquez PA-C [address] [employer] [facility] [place] [id number] Referral ID Status Reason Start Date Expiration Date Visits Requested Visits Authorized [id number] Pending Review Specialty Services Required 4 999 [...] [place] [id number] Beulah Márquez PA-C [address] [place] [address] Follow Up; Outpatient Testing Allergies Active Allergy Reactions Criticality Noted Date Comments Erythromycin 04/16/2003 GI UPSET documented as of this encounter (statuses as of 01/03/2024) Medications Medication Sig Dispensed Refills Start Date End Date Status [place]-3 Fatty Acids (FISH OIL) 1000 MG Capsule [...] as of this encounter (statuses as of 01/03/2024) Active Problems Problem Noted Date Diagnosed Date [...] as of this encounter (statuses as of 01/03/2024) Resolved Problems Problem Noted Date Diagnosed Date Resolved Date Elderly multigravida 09/21/2004 010 ADVANCE DIRECTIVE INFORMATION 07/03/2004 08/31/2017 Overview: No, Advance Directive brochure given to patient at prior appointment. documented as of this encounter (statuses as of 01/03/2024) Immunizations Name Administration Dates Next Due COVID-19 mRNA, LNP-s, No Pre serve, 2-Dose Series ([employer]) 01/20/2021,03/25/2020,03/05/2020 COVID-19, LNP-s, No Preserve , Trevon-sucrose, [...] encounter Miscellaneous Notes * Telephone Encounter - Yola Hoffman MS - 01/03/2024 1:29 PM EDT Referral received; will sched next available. * Telephone Encounter - Beulah Márquez PA-C [...] Description 05/16/2024 8:15 AM EDT Imaging Radiology [facility] [address] [facility] [place] [address] 09/24/2024 3:40 PM EDT Office Visit General Internal [facility] [address] [place] [address] Benito Gold MD [address] [place] [address] Scheduled Procedures Name Priority Associated Diagnoses Date/Ti [...] tract documented in this encounter Care Teams Curriculum Writer Relationship Specialty Start Date End Date Benito Gold MD [address] [place] [address] PCP - General Internal Medicine 12/20/11 documented as of this encounter
[2024-04-18] MEDS: MoRPHine SULFATE 2 MG/ML CARP IV PRN (19:20)
[2024-04-18] MEDS: ONDANSETRON INJ 2 MG/ML 2 ML VIAL IV PRN (19:20)
[2024-04-18] MEDS: LACTATED RINGER'S 1,000 ML IV SCH (20:43)
[2024-04-19 07:49] LABS: Hematocrit (blood only) 36.2 % (37.0-47.0); Hemoglobin 12.2 g/dl (12.0-16.0); Mean Corpuscular Hemoglobin 30.7 pg (25.0-34.0); Mean Corpuscular Hgb Conc 33.7 g/dL (32.0-36.0); Mean Corpuscular Volume 91.2 fL (80.0-100.0); Mean Platelet Volume 10.5 fL (9.4-12.4); Platelet Count 189 K/uL (130-400); RDW Coefficient of Variation 13.2 % (11.5-14.5); RDW Standard Deviation 44.7 fL (36.4-46.3); Red Blood Count 3.97 M/uL (4.20-5.40); White Blood Count 4.05 K/ul (4.8-10.8)
[2024-04-19 08:03] LABS: Albumin Globulin Ratio 1.5 (0.9-2); Albumin Level 3.5 gm/dl (3.4-5.0); BUN Creatinine Ratio 20.2 (10-20); Bilirubin,Total 0.5 mg/dl (0.2-1.0); Calcium 8.3 mg/dl (8.6-10.3); Globulin 2.3 gm/dl (2.5-4.0); Magnesium 1.9 mg/dl (1.7-2.4); Phosphorus 2.8 mg/dl (2.5-4.9); Potassium 3.8 mmol/L (3.5-5.1); Total Protein 5.8 gm/dl (6.0-8.3)
--- NOTE | 2024-04-19 08:26 | Surgery Progress Note ---
Date of Service April 19, 2024 Assessment & Plan (1) SBO (small bowel obstruction): Plan: Doing better No signs of ischemic bowel clinically Continue NGT/NPO today Will trial non-operative managment Admission and Anticipated Discharge Date Admission Date: April 18, 2024 Subjective Patient seen and examined. Pain much improved. Passed a small amount of flatus this AM. No BM. No N/V. Review of Systems Constitutional: no fever and no chills Respiratory: no cough and no dyspnea Cardiovascular: no chest pain and no dyspnea on exertion Gastrointestinal: + abdominal pain; no nausea and no vomit ing Integumentary: no lesions and no changing lesions Psychiatric: no behavioral changes and no depression Hematologic / Lymphatic: no easy bleeding and no easy bruising Physical Exam Constitutional: WD/WN, vitals as above ENMT: NGT in place with minimal bilious output Respiratory: normal respiratory effort, lungs clear to auscultation Cardiovascular: RRR, no murmur, no edema Gastrointestinal (Abdomen): Inspection/Auscultation: abdomen normal to inspection; abdomen not distended Percussion/Palpation: + abdomen tender (mild generalized) and abdomen soft; no guarding Skin: no rashes, warm and dry Psychiatric: A+Ox3, euthymic affect Results & Data Vital Signs (Past 12 Hours) Vital Signs Temp Pulse Resp BP Pulse Ox O2 Del Method 04/19/24 07:25 36.9 C 80 14 97/54 L 96 Room Air PG Care Time/CCT Total # of Minutes Spent Total Time Spent with Patient: Total time spent is greater than 50% in coordination of care (as documented) at patient's floor/unit and/or counseling patient: Coding Level of Care Code 47697 SUB INP/OBS CARE 03/30MIN Diagnoses SBO (small bowel obstruction) K56.609
--- NOTE | 2024-04-19 12:04 | Hospitalist Progress Note ---
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 On admission; Abd CT showed moderate to high grade SBO with transition point in RLQ within distal ileum Labs notable for WBC 12.96 UA noted trace esterase, WBC 21-50 WBC normalized Continue NPO Change IVF to Dextrose 5- 1/2 saline Continue conservative management for now Continue NGT to LIS. Continue IV ceftriaxone for cystitis Continue to hold off home po meds for now and reassess daily DVT ppx- Hep sq Code status- Full code I spent a total of 50 minutes coordinating, documenting and providing care for this patient excluding time spent in performance of separately billed services Admission and Anticipated Discharge Date Admission Date: April 18, 2024 Subjective Patient seen and examined Reports abd pain is improving No nausea/vomiting Yet to have a BM but passed flatus Denied any other complaints Physical Exam Constitutional: + well hydrated; no acute distress Eyes: PERRL, conjunctivae normal, anicteric sclerae ENMT: external ear and nose normal, oropharynx normal NGT in situ. Bilous drainage Respiratory: normal respiratory effort, lungs clear to auscultation Cardiovascular: Rate/Rhythm: regular rate and regular rhythm Gastrointestinal (Abdomen): Soft, +tenderness (central and RLQ), some bowel sounds, not rigid Musculoskeletal: no cyanosis or clubbing, extremities motor strength 5/5 Neurologic: PERRL, EOMI, accommodation nl, no face palsy, no dysarthria Psychiatric: A+Ox3, euthymic affect Results & Data Results & Data Vital Signs (Past 12 Hours) Vital Signs Temp Pulse Resp BP Pulse Ox O2 Del Method 04/19/24 07:25 36.9 C 80 14 97/54 L 96 Room Air Laboratory Results Abnormal lab results 04/18/24 04/18/24 04/19/24 Range/Units 13:02 13:15 07:15 WBC 12.96 H 4.05 L D (4.8-10.8) K/ul RBC 3.97 L (4.20-5.40) M/uL Hct 36.2 L (37.0-47.0) % Neut # (Auto) 11.65 H (1.40-6.50) K/uL Lymph # (Auto) 0.74 L (1.20-3.40) K/uL Chloride 111 H (98-107) mmol/L BUN/Creatinine Ratio 20.2 H (10-20) Glucose 122 H (70-99(Fasting)) mg/dl Calcium 8.3 L D (8.6-10.3) mg/dl AST 12 L (13-39) U/L Total Protein 5.8 L D (6.0-8.3) gm/dl Globulin 2.3 L (2.5-4.0) gm/dl Urine Appearance Cloudy A (Clear) Ur Specific [place] 1.036 H (1.000-1.030) Urine Protein 1+ H (Negative) Urine Ketones 4+ H (Negative) Ur Leukocyte Esterase Trace H (Negative) Urine WBC (Auto) 21-50 H (0-5) /hpf U Hyaline Cast (Auto) 3-5 H (0-2) /lpf U Epithel Cells (Auto) 6-10 H (0-2) /hpf Urine Mucus Present A (None Prsent)
[2024-04-19] MEDS: D5W AND 1/2NSS 1,000 ML IV SCH (12:09)
--- NOTE | 2024-04-19 12:23 | Electrocardiogram Report ---
Test Reason : Blood Pressure : */* mmHG Vent. Rate : 84 BPM Atrial Rate : 84 BPM P-R Int : 142 ms QRS Dur : 74 ms QT Int : 372 ms P-R-T Axes : 78 66 65 degrees QTcB Int : 439 ms Normal sinus rhythm Possible Left atrial enlargement Borderline ECG No previous ECGs available Confirmed by Balbir Flores ([id number]) on 04/19/2024 12:23:17 PM Referred By: REFERRED SELF Confirmed By: Balbir Flores
[2024-04-19] MEDS: KETOROLAC TROMETHAMINE 15 MG/ML VIAL IV PRN (15:34)
[2024-04-19] MEDS: cefTRIAXone SODIUM 1,000 MG/50 ML BAG IV SCH (17:23)
[2024-04-19] MEDS: CHLORASEPTIC (PHENOL) 1.4% SOLN 180 ML BTL MT PRN (18:10)
[2024-04-19] MEDS: HEPARIN SOD 5,000 UNIT/0.5 ML VIAL SQ SCH (21:47)
[2024-04-20 06:45] LABS: Hematocrit (blood only) 34.3 % (37.0-47.0); Hemoglobin 11.5 g/dl (12.0-16.0); Mean Corpuscular Hgb Conc 33.5 g/dL (32.0-36.0); Mean Corpuscular Volume 92.5 fL (80.0-100.0); Mean Platelet Volume 10.6 fL (9.4-12.4); Platelet Count 175 K/uL (130-400); RDW Coefficient of Variation 12.9 % (11.5-14.5); RDW Standard Deviation 43.4 fL (36.4-46.3); Red Blood Count 3.71 M/uL (4.20-5.40)
[2024-04-20 07:13] LABS: Albumin Globulin Ratio 1.4 (0.9-2); Albumin Level 3.3 gm/dl (3.4-5.0); BUN Creatinine Ratio 21.5 (10-20); Bilirubin,Total 0.3 mg/dl (0.2-1.0); Calcium 8.4 mg/dl (8.6-10.3); Creatinine Clr Calc Pharmacy 74.4 ml/min; Globulin 2.4 gm/dl (2.5-4.0); Magnesium 1.9 mg/dl (1.7-2.4); Potassium 3.3 mmol/L (3.5-5.1); Total Protein 5.7 gm/dl (6.0-8.3)
[2024-04-20] MEDS: POTASSIUM CHLORIDE / WTR 10 MEQ/100 ML PLCT IV SCH (08:38)
--- NOTE | 2024-04-20 10:33 | Surgery Progress Note ---
Date of Service April 20, 2024 Assessment & Plan (1) SBO (small bowel obstruction): Plan small bowel obstruction, now resolving. No urgent surgical indications at this time. Will continue NG tube for now. Awaiting more flatus. She may have ice chips and sips. Admission and Anticipated Discharge Date Admission Date: April 18, 2024 Subjective improving slightly; has had a few episodes of flatus; no bowel movements, no nausea or vomiting Physical Exam Physical Exam: NAD, A&O x 3 NCAT, no scleral icterus Abdomen: Soft, mild TTP in right lower quadrant No rebound or guarding Results & Data Vital Signs (Past 12 Hours) Vital Signs Temp Pulse Resp BP Pulse Ox O2 Del Method 04/20/24 07:15 36.8 C 71 16 106/67 96 Room Air Laboratory Results 04/20/24 Range/Units 06:10 WBC 3.50 L (4.8-10.8) K/ul RBC 3.71 L (4.20-5.40) M/uL Hgb 11.5 L (12.0-16.0) g/dl Hct 34.3 L (37.0-47.0) % MCV 92.5 (80.0-100.0) fL MCH 31.0 (25.0-34.0) pg MCHC 33.5 (32.0-36.0) g/dL RDW Std Deviation 43.4 (36.4-46.3) fL RDW Coeff of Ronnie 12.9 (11.5-14.5) % Plt Count 175 (130-400) K/uL MPV 10.6 (9.4-12.4) fL Sodium 144 (136-145) mmol/L Potassium 3.3 L (3.5-5.1) mmol/L Chloride 109 H (98-107) mmol/L Carbon Dioxide 29 (21-32) mmol/L Anion Gap 6 (3-11) BUN 17 (6-23) mg/dl Creatinine 0.79 (0.6-1.2) mg/dl Est Cr Clr Drug Dosing 74.4 ml/min eGFR 87.74 BUN/Creatinine Ratio 21.5 H (10-20) Glucose 95 (70-99(Fasting)) mg/dl Calcium 8.4 L (8.6-10.3) mg/dl Phosphorus 3.0 (2.5-4.9) mg/dl Magnesium 1.9 (1.7-2.4) mg/dl Total Bilirubin 0.3 (0.2-1.0) mg/dl AST 13 (13-39) U/L ALT 7 (7-52) U/L Alkaline Phosphatase 45 (34-104) U/L Total Protein 5.7 L (6.0-8.3) gm/dl Albumin 3.3 L (3.4-5.0) gm/dl Globulin 2.4 L (2.5-4.0) gm/dl Albumin/Globulin Ratio 1.4 (0.9-2)
--- NOTE | 2024-04-20 10:59 | Hospitalist Progress Note ---
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 On admission; Abd CT showed moderate to high grade SBO with transition point in RLQ within distal ileum Labs notable for WBC 12.96 UA noted trace esterase, WBC 21-50 Continue NPO. Changed to allow for sips and ice chips per Surg today Continue IVF Dextrose 5- 1/2 saline Continue conservative management for now Continue NGT to LIS. Replete hypokalemia and monitor Continue IV ceftriaxone for cystitis Plan to resume home po meds. Will need NGT intermittent suction held for a few hrs after meds are taken DVT ppx- Hep sq Code status- Full code I spent a total of 40 minutes coordinating, documenting and providing care for this patient excluding time spent in performance of separately billed services Admission and Anticipated Discharge Date Admission Date: April 18, 2024 Subjective Patient seen and examined Still reports abd pain. No nausea or vomiting Passing some flatus. No BM yet Physical Exam Constitutional: + well hydrated; no acute distress Eyes: PERRL, conjunctivae normal, anicteric sclerae ENMT: external ear and nose normal, oropharynx normal NGT in situ Respiratory: normal respiratory effort, lungs clear to auscultation Cardiovascular: Rate/Rhythm: regular rate and regular rhythm Gastrointestinal (Abdomen): Soft, +tender, not rigid, reduced bowel sounds Musculoskeletal: no cyanosis or clubbing, extremities motor strength 5/5 Neurologic: PERRL, EOMI, accommodation nl, no face palsy, no dysarthria Psychiatric: A+Ox3, euthymic affect Results & Data Results & Data Vital Signs (Past 12 Hours) Vital Signs Temp Pulse Resp BP Pulse Ox O2 Del Method 04/20/24 07:15 36.8 C 71 16 106/67 96 Room Air Laboratory Results Abnormal lab results 04/20/24 Range/Units 06:10 WBC 3.50 L (4.8-10.8) K/ul RBC 3.71 L (4.20-5.40) M/uL Hgb 11.5 L (12.0-16.0) g/dl Hct 34.3 L (37.0-47.0) % Potassium 3.3 L (3.5-5.1) mmol/L Chloride 109 H (98-107) mmol/L BUN/Creatinine Ratio 21.5 H (10-20) Calcium 8.4 L (8.6-10.3) mg/dl Total Protein 5.7 L (6.0-8.3) gm/dl Albumin 3.3 L (3.4-5.0) gm/dl Globulin 2.4 L (2.5-4.0) gm/dl
[2024-04-20] MEDS: D5W AND 1/2NSS 1,000 ML IV SCH (13:36)
[2024-04-21 06:46] LABS: Hematocrit (blood only) 34.5 % (37.0-47.0); Hemoglobin 11.6 g/dl (12.0-16.0); Mean Corpuscular Hemoglobin 30.4 pg (25.0-34.0); Mean Corpuscular Hgb Conc 33.6 g/dL (32.0-36.0); Mean Corpuscular Volume 90.6 fL (80.0-100.0); Mean Platelet Volume 10.5 fL (9.4-12.4); Platelet Count 188 K/uL (130-400); RDW Coefficient of Variation 12.6 % (11.5-14.5); RDW Standard Deviation 41.4 fL (36.4-46.3); Red Blood Count 3.81 M/uL (4.20-5.40); White Blood Count 3.75 K/ul (4.8-10.8)
[2024-04-21 07:08] LABS: BUN Creatinine Ratio 16.4 (10-20); Calcium 8.6 mg/dl (8.6-10.3); Creatinine Clr Calc Pharmacy 80.6 ml/min; Magnesium 1.8 mg/dl (1.7-2.4); Phosphorus 3.2 mg/dl (2.5-4.9); Potassium 3.5 mmol/L (3.5-5.1)
[2024-04-21] MEDS: buPROPion XL 300 MG TABCR PO SCH (09:28)
--- NOTE | 2024-04-21 11:33 | Surgery Progress Note ---
Date of Service April 21, 2024 Assessment & Plan (1) SBO (small bowel obstruction): Plan small bowel obstruction, now resolving. No urgent surgical indications at this time. Will Clamp NG tube. Check residuals in 6 hours. Admission and Anticipated Discharge Date Admission Date: April 18, 2024 Subjective feeling better. More gas today. Still some abdominal tenderness. No nausea or vomiting. Physical Exam Physical Exam: NAD, A&O x 3 NCAT, no scleral icterus Abdomen: Soft, mild TTP in right lower quadrant No rebound or guarding Results & Data Vital Signs (Past 12 Hours) Vital Signs Temp Pulse Resp BP Pulse Ox O2 Del Method 04/21/24 07:12 36.7 C 73 16 108/69 95 Room Air
[2024-04-21] MEDS: FAMOTIDINE 20MG IV PUSH 20 MG/5 ML SYR IV SCH (11:34)
--- NOTE | 2024-04-21 13:15 | Hospitalist Progress Note ---
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 On admission; Abd CT showed moderate to high grade SBO with transition point in RLQ within distal ileum Labs notable for WBC 12.96 UA noted trace esterase, WBC 21-50 Continue NPO. Changed to allow for sips and ice chips per Surg today Continue IVF Dextrose 5- 1/2 saline NGT is currently clamped. RN will check residual in a few hours and follow up with surg If continues to improve, plan to start clears and monitor Continue IV ceftriaxone for cystitis Resumed home po meds. DVT ppx- Hep sq Code status- Full code I spent a total of 45 minutes coordinating, documenting and providing care for this patient excluding time spent in performance of separately billed services Admission and Anticipated Discharge Date Admission Date: April 18, 2024 Subjective Patient seen and examined Reports significant improvement in abd pain. No pain at rest, only some tenderness with palpation Reports she had a small BM earlier No other complaints Physical Exam Constitutional: + well hydrated; no acute distress Eyes: PERRL, conjunctivae normal, anicteric sclerae ENMT: external ear and nose normal, oropharynx normal NGT currently clamped Respiratory: normal respiratory effort, lungs clear to auscultation Cardiovascular: Rate/Rhythm: regular rate and regular rhythm Gastrointestinal (Abdomen): Soft, not distended, mild RLQ tenderness, normal bowel sounds Musculoskeletal: no cyanosis or clubbing, extremities motor strength 5/5 Neurologic: PERRL, EOMI, accommodation nl, no face palsy, no dysarthria Psychiatric: A+Ox3, euthymic affect Results & Data Results & Data Vital Signs (Past 12 Hours) Vital Signs Temp Pulse Resp BP Pulse Ox O2 Del Method 04/21/24 07:12 36.7 C 73 16 108/69 95 Room Air Laboratory Results Abnormal lab results 04/21/24 Range/Units 05:49 WBC 3.75 L (4.8-10.8) K/ul RBC 3.81 L (4.20-5.40) M/uL Hgb 11.6 L (12.0-16.0) g/dl Hct 34.5 L (37.0-47.0) %
[2024-04-21 14:34] VITALS: RESP 18
[2024-04-21 20:07] VITALS: PULSE 67
[2024-04-22 07:05] VITALS: BP 115/75; TEMP 97.7; O2SAT 100
[2024-04-22 08:08] LABS: BUN Creatinine Ratio 8.5 (10-20); Calcium 9.3 mg/dl (8.6-10.3); Creatinine Clr Calc Pharmacy 71.7 ml/min; Magnesium 1.9 mg/dl (1.7-2.4); Phosphorus 3.5 mg/dl (2.5-4.9); Potassium 3.9 mmol/L (3.5-5.1)
[2024-04-22] MEDS: VORTIOXETINE HYDROBROMIDE PO SCH (08:53)
--- NOTE | 2024-04-22 12:53 | Surgery Progress Note ---
<Statement entered by Elise Croft DO - 04/23/24 08:23> I have seen and examined this patient with the surgical PA, I agree with this plan. Date of Service April 22, 2024 Assessment & Plan (1) SBO (small bowel obstruction): Plan: Pt here with SBO, history of R hemicolectomy 2 years ago for cecal volvulus passed NGT clamp trial yesterday and doing well since removal + BMs this AM and + gas Medicine working on advancing diet, currently on regular. pt knows to take it easy over the next couple of days No surgical needs at this time as SBO appears to be resolving D/c planning per medicine. we are okay with dispo as early as today. we will follow peripherally please call if any questions/concerns Admission and Anticipated Discharge Date Admission Date: April 18, 2024 Subjective Patient feeling well. Abdominal pain controlled, outside of some cramps. + BMs this AM. Tolerating regular food. Physical Exam Physical Exam: awake, alert, no distress Gastrointestinal (Abdomen): Percussion/Palpation: abdomen soft; abdomen nontender Results & Data Vital Signs (Past 12 Hours) Vital Signs Temp Pulse Resp BP Pulse Ox O2 Del Method 04/22/24 07:04 97.7 F 67 18 115/75 100 Room Air PG Care Time/CCT Total # of Minutes Spent Total Time Spent with Patient: Total time spent is greater than 50% in coordination of care (as documented) at patient's floor/unit and/or counseling patient: Coding Level of Care Code 39414 SUB INP/OBS CARE 03/30MIN Diagnoses SBO (small bowel obstruction) K56.609
--- NOTE | 2024-04-22 14:31 | Discharge Summary ---
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 Patient reported that she has been having constipation for the past couple of weeks, described as infrequent bowel movement with pellet-like stools. Yesterday she had to strain to move her bowels. After which she developed abdominal pain pain was initially migrated down to the right side, initially distended, associated with nausea and vomiting (initially clear and then bilous) . Denied fever, chills, cough, chest pain or short of breath Reported dysuria within the past couple of days. Denied hematuria Patient does not smoke or use recreational drugs Drinks alcohol only socially Reports childhood allergy to pencillin but has tolerated amoxicillin as an adult Reports hx of 2 section Admission Exam Per Admitting Provider Constitutional: + well hydrated; no acute distress Eyes: PERRL, conjunctivae normal, anicteric sclerae ENMT: external ear and nose normal, oropharynx normal NGT in place Respiratory: normal respiratory effort, lungs clear to auscultation Cardiovascular: Rate/Rhythm: regular rate and regular rhythm Gastrointestinal (Abdomen): Soft, not distended, central and RLQ tenderness, no guarding Musculoskeletal: no cyanosis or clubbing, extremities motor strength 5/5 Neurologic: PERRL, EOMI, accommodation nl, no face palsy, no dysarthria Psychiatric: A+Ox3, euthymic affect Principal Diagnosis Small bowel obstruction Discharge Exam Constitutional + well hydrated; no acute distress Eyes PERRL, conjunctivae normal, anicteric sclerae ENMT external ear and nose normal, oropharynx normal Respiratory normal respiratory effort, lungs clear to auscultation Cardiovascular Rate/Rhythm: regular rate and regular rhythm Gastrointestinal (Abdomen) normal bowel sounds, soft, nontender, no hepatosplenomegaly Musculoskeletal no cyanosis or clubbing, extremities motor strength 5/5 Neurologic PERRL, EOMI, accommodation nl, no face palsy, no dysarthria Psychiatric A+Ox3, euthymic affect Discharge Data Allergies Allergy/AdvReac Type Severity Reaction Status Date / Time Penicillins Allergy Unknown HIVES Verified 04/19/22 19:22 erythromycin base AdvReac Unknown GI UPSET Verified 04/19/22 19:22 Consultations 04/18/24 16:12 ED Decision to Admit Stat Ordered Studies 04/18/24 13:04 CT abd pelvis IV con only Stat Hospital Course (1) SBO (small bowel obstruction): Plan 58-year-old woman with history of anxiety/depression, 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 On admission; Abd CT showed moderate to high grade SBO with transition point in RLQ within distal ileum Labs notable for WBC 12.96 UA noted trace esterase, WBC 21-50 Patient was seen by General surgery who recommended conservative management Patient was put on NGT to suction and NPO Pain resolved and normal bowel movement returned Patient tolerating regular diet Patient was treated with IV ceftriaxone for cystitis while inpatient Total Time Total Time Spent Total Time Spent (In Minutes): 35 Total Time Includes: Examination of the Patient, Discharge Planning, Medication Reconciliation and Communication With Other Providers Discharge Plan Discharge Items Patient Disposition: Home - Self-Care Reason For Visit: ABDOMINAL PAIN Discharge Diagnosis: Small bowel obstruction Activity: Resume your previous activity Non-emergency contact: Primary Care Provider Call non-emergency contact if: you have any medication questions Follow-up/Referrals: Benito Gold MD [Primary Care Provider] - (Date & Time 04/30/2024 11:00 AM Provider: Benito Gold MD General Internal Medicine [facility] ) Diet: Regular Addtl Attending Provider Instructions: Mrs Castillo You presented to the hospital with abdominal pain. You were managed for Small Bowel obstruction. Please ensure follow up with your Primary Care Doctor. It was a pleasure taking care of you Pending Studies at Discharge: No Stand-Alone Forms: My [employer], Work/School Release, Smoking Cessation Medications and DC Order Prescriptions: Continued bupropion HCl 300 mg tablet extended release 24 hr 300 mg PO QAM Trintellix 10 mg tablet 10 mg PO DAILY valacyclovir 1 gram tablet 1,000 mg PO DIRECTED lisdexamfetamine 40 mg capsule 40 mg PO DAILY Discharge Orders: Discharge Order (Routine); Ordered 04/22/24 Ordered By: Amairani Farias/Other Patient Handouts: Small Bowel Obstruction Admission Data Admit Date/Time: 04/18/24 16:50 Attending Provider: Amairani Osullivan I. Admit Provider: Amairani Osullivan I. Primary Care Provider: Benito Gold Other Providers: Amairnai Osullivan I. Other Interventions: Discharge Summary Assessment (RN) Last Done: 04/22/24 14:05
== END 2024-04-22 15:07 | disposition home or self-care (01) | DRG 389 ==
LOC: ED 12:54 → 3W 16:50